=== PATIENT | female | born 1950 | race African-American/Black ===

== ENCOUNTER 2018-11-02 22:24 | Inpatient (IN) | payer MEDICARE, OTHER ==
--- NOTE | 2018-11-02 22:35 | ED Physician Chart ---
ED Chief Complaint/HPI - Patient Information Date Seen:: 11/02/18 Time Seen:: 22:30 Chief Complaint:: AGITATION History of Present Illness:: 68 YR OLD FEMALE FROM [place] IN [place] WITH AGITATION PSYCHOSIS PT WITH HTN COPD GERD ANEMIA ED Review of Systems - Review of Systems General/Constitutional: No fever, No chills, No weight loss, No weakness, No diaphoresis, No edema, No loss of appetite Skin: No skin lesions, No rash, No bruising Head: No headache, No light-headedness Eyes: No loss of vision, No pain, No diplopia ENT: No earache, No nasal drainage, No sore throat, No tinnitus Neck: No neck pain, No swelling, No thyromegaly, No stiffness, No mass noted Cardio Vascular: No chest pain, No palpitations, No PND, No orthopnea, No edema Pulmonary: No SOB, No cough, No sputum, No wheezing GI: No nausea, No vomiting, No diarrhea, No pain, No melena, No hematochezia, No constipation, No hematemesis G/U: No dysuria, No frequency, No hematuria Musculoskeletal: No bone or joint pain, No back pain, No muscle pain Endocrine: No polyuria, No polydipsia Psychiatric: Anxiety, Other (PSYCHOSIS SCHIZOPHRENIA) Hematopoietic: No bruising, No lymphadenopathy Allergic/Immuno: No urticaria, No angioedema Neurological: No syncope, No focal symptoms, No weakness, No paresthesia, No headache, No seizure, No dizziness, No confusion, No vertigo ED Past Medical History - Past Medical History Past Medical History: HTN, Asthma/COPD, Other (ANEMIA GERD SCHIZOPHRENIA ANXIETY DEPRESSION) ED Physical Exam - Physical Examination General/Constitutional: Awake, Alert Head: Atraumatic Eyes: Lids, conjuctiva normal, PERRL, EOMI Skin: Nl inspection, No rash, No skin lesions, No ecchymosis, Well hydrated, No lymphadenopathy ENMT: Lips, teeth, gums nl Neck: Nontender, Full ROM w/o pain, No JVD, No nuchal rigidity, No bruit, No mass, No stridor Respiratory: Nl effort/Exclusion, Clear to Auscultation, No Wheeze/Rhonchi/Rales Cardio Vascular: RRR, No murmur, gallop, rubs, NL S1 S2 GI: No tenderness/rebounding/guarding, Normal BS's, Nondistended : No CVA tenderness Extremities: No edema Misc: Normal back, No paraspinal tenderness ED Septic Shock - . Is Septic Shock (SBP<90, OR Lactate>4 mmol\L) present?: No ED Reassessment (Disposition) - Reassessment Reassessment Condition:: Unchanged - Diagnosis Diagnosis:: AGITATION PSYCHOSIS - Patient Disposition Discharge/Transfer:: Acute Care w/in this hosp
[2018-11-02] MEDS ORDERED: Haloperidol Lactate 5 mg/mL 1mL Vial ONE (22:39)
[2018-11-02] MEDS ORDERED: Haloperidol Lactate 5 mg/mL 1mL Vial IM STA (22:40)
[2018-11-02 22:50] LABS: % BASOPHILS 0.4 % (0.0-2.0); % EOSINOPHILS 4.7 % (0.0-5.0); % LYMPHOCYTES 36.3 % (20.0-50.0); % MONOCYTES 11.2 % (2.0-10.0); % NEUTROPHILS 47.4 % (40.0-80.0); EOSINOPHILE ABSOLUTE 0.4 Th/cmm (0.1-0.4); HEMATOCRIT 36.9 % (41.0-60); HEMOGLOBIN 11.8 gm/dL (12-16); LYMPHOCYTE ABSOLUTE 2.7 Th/cmm (1.5-3.0); MEAN CELL VOLUME 83.4 fl (81-100); MEAN CORPUSCULAR HEMOGLOBIN 26.8 pg (27.0-31.0); MEAN CORPUSCULAR HGB CONC 32.1 pg (28.0-36.0); MEAN PLATELET VOLUME 7.7 fl; MONOCYTE ABSOLUTE 0.8 Th/cmm (0.3-1.0); NEUTROPHILE ABSOLUTE 3.6 Th/cmm (1.8-8.0); PLATELET COUNT 369 Th/cmm (150-400); RED BLOOD COUNT 4.42 Mil/cmm (3.80-5.20); RED CELL DISTRIBUTION WIDTH 15.3 % (11.5-20.0); WHITE BLOOD COUNT 7.5 Th/cmm (4.8-10.8)
[2018-11-02 23:05] LABS: ALBUMIN 3.6 gm/dL (3.7-5.3); ALKALINE PHOSPHATASE 55 U/L (34-104); ANION GAP 11.2 (7.0-16.0); BILIRUBIN,TOTAL 0.2 mg/dL (0.3-1.0); BUN - UREA NITROGEN 20 mg/dL (7-25); CALCIUM SERUM 9.6 mg/dL (8.6-10.3); CARBON DIOXIDE 26.8 mEq/L (21.0-31.0); CHLORIDE 103 mEq/L (98-107); CREATININE - SERUM 0.5 mg/dL (0.6-1.2); GFR AFRICAN-AMERICAN > 60.0 ml/min (>90); GFR NON AFRICAN-AMERICAN > 60.0 ml/min; GLUCOSE 110 mg/dL (70-105); SGOT 13 U/L (13-39); SGPT/ALT 7 U/L (7-52); SODIUM SERUM 137 mEq/L (136-145); TOTAL PROTEIN,SERUM 7.4 gm/dL (6.0-8.3)
[2018-11-02 23:40] LABS: CHOLESTEROL 153 mg/dL (<200); HDL -HIGH DENSITY LIPOPROTEIN 59 mg/dL (23-92); TRIGLYCERIDES 56 mg/dL (<150)
[2018-11-03 02:02] VITALS: BP 103/79
[2018-11-03] MEDS ORDERED: APAP/Codeine 300 mg/30 mg Tab PO PRN (02:03)
[2018-11-03] MEDS ORDERED: Acetaminophen 500 MG TAB PO PRN (02:03)
--- NOTE | 2018-11-03 13:05 | Psychiatric Evaluation ---
DATE OF SERVICE: 11/03/2018 IDENTIFYING DATA: The patient is a 68-year-old -[place]ian woman, resident of [facility]. Information obtained by interviewing the patient as well as reviewing the admission papers and they are reliable. JUSTIFICATION OF HOSPITALIZATION: The patient is admitted here on a voluntary basis under the care of Dr. De La Fuente and the patient has been noted to be grossly psychotic, agitated and has not been able to contract for safety. The patient has been on Seroquel prior to the hospitalization, but the patient has not been able to calm down. The patient is reported to have multiple medical problems such as COPD, hypertension, GERD and glaucoma, arthritis, anemia and patient at this time has been getting easily irritable, angry and actively responding to internal stimuli. Sleep and appetite prior to the hospitalization are reported to be poor. PAST PSYCHIATRIC HISTORY: Please refer to the above. The patient is not giving any information. MEDICAL HISTORY: Physical examination is requested to be done by Dr. Rosen. SUBSTANCE ABUSE HISTORY: None. PHYSICAL OR SEXUAL ABUSE HISTORY: None. LEGAL PROBLEMS: None at this time. STRENGTH AND ASSETS: The patient is motivated. MENTAL STATUS EXAMINATION: The patient is a 68-year-old, looking her stated age, superficially cooperative. Eye contact is poor. Mood is noted to be irritable. Affect is constricted. Insight and judgment at this time are noted to be still impaired. Impulse control is noted to be poor. Coping skills are also noted to be very poor. The patient has been having difficult time to cope with the stress. The patient is getting easily irritable and angry and the patient has actively been responding to internal stimuli. Continues to be very paranoid. Attention span and concentration are noted to be poor. Short and long-term memory could not be tested because the patient is not cooperative. DIAGNOSTIC IMPRESSION: AXIS I: Schizophrenia, chronic paranoid type with acute exacerbation. AXIS II: None. AXIS III: As per Dr. Rosen. IMMEDIATE TREATMENT PLAN: The patient is going to be observed on the inpatient unit, provided with supportive psychotherapy. The patient is going to be encouraged to participate in the groups and verbalize the concerns. Once stabilized, the patient is going to be discharged to [facility] to be followed up on an outpatient basis. JOB# [id number]
--- NOTE | 2018-11-03 16:10 | History and Physical ---
History of Present Illness - HPI Chief Complaint: agitation HPI: This is a 68-year old female who is a resident of [facility] with a 1 day history of agitation. Vital Signs: Last Vital Signs Temp 0 F 11/03/18 06:34 Pulse 82 11/02/18 23:45 Resp 18 11/02/18 23:45 BP 103/79 11/03/18 02:02 Pulse Ox 96 11/02/18 23:45 Past Medical History Other History: HTN, Asthma, COPD, ANEMIA GERD SCHIZOPHRENIA ANXIETY DEPRESSION Family Medical History - Family Member Mother History Unknown: Yes Social History Smoke: No Alcohol: None Drugs: None Lives: [facility] - Medications Home Medications: Home Medication Medication Instructions Recorded Type Acetaminophen [Tylenol Extra 1 tab PO Q8HR PRN MDD NOT TO 11/02/18 History Strength] EXCEED 3 GRAMS APAP Acetaminophen with Codeine 1 tab PO Q8HR PRN MDD NOT TO 11/02/18 History [Acetaminophen-Cod #3 Tablet] EXCEED 3 GRAMS APAP Benztropine [Cogentin*] 1 tab PO BID 11/02/18 History Methocarbamol [Robaxin] 500 mg PO Q8HR PRN 11/02/18 History QUEtiapine Fumarate [SEROquel] 1 tab PO BID PRN 11/02/18 History - Allergies Allergies/Adverse Reactions: Allergies Allergy/AdvReac Type Severity Reaction Status Date / Time tetracycline Allergy Unknown Verified 11/02/18 22:33 klonopin Allergy Unknown Uncoded 11/02/18 22:35 Review of Systems - Review of Systems Constitutional: Report: No Significant Eyes: Report: No Significant Respiratory: Report: No Significant Cardiovascular: Report: No Significant Neurological: Report: No Significant Physical Exam - Physical Exam HEENT: Report: Ears Nose Throat within normal limits, Pharnyx within normal limits Neck: Report: Within normal limits Cardiovascular Systems: Report: +s1/s2 noted, Regular, Rate and Rhythm, no murmurs noted Respiratory: Report: Breath Sounds are within normal limits, Clear to Auscultation of lung latif Abdomen: Report: Non-tender to palpation Back: Report: Inspection of back is within normal limits. Extremities: Report: Non-tender to palpation. Skin: Report: Color of skin is within normal limits, Warm, Dry Neuro/Psych: Report: Depressed affect - Lab Results All Lab Results last 24 hours: Laboratory Results - last 24 hr 11/02/18 11/02/18 11/02/18 22:40 22:40 22:40 WBC 7.5 RBC 4.42 Hgb 11.8 L Hct 36.9 L MCV 83.4 MCH 26.8 L MCHC Differential 32.1 RDW 15.3 Plt Count 369 MPV 7.7 Neutrophils % 47.4 Lymphocytes % 36.3 Monocytes % 11.2 H Eosinophils % 4.7 Basophils % 0.4 Sodium 137 Potassium 4.0 Chloride 103 Carbon Dioxide 26.8 Anion Gap 11.2 BUN 20 Creatinine 0.5 L Est GFR ( Amer) > 60.0 Est GFR (Non-Af Amer) > 60.0 BUN/Creatinine Ratio 40.0 Glucose 110 H Calcium 9.6 Total Bilirubin 0.2 L AST 13 ALT 7 Alkaline Phosphatase 55 Total Protein 7.4 Albumin 3.6 L Globulin 3.8 Albumin/Globulin Ratio 1.0 Triglycerides 56 Cholesterol 153 LDL Cholesterol Direct 82 HDL Cholesterol 59 - Assessment Assessment: HTN ASTHMA COPD ANEMIA SCHIZOPHRENIA ANXIETY DEPRESSION - Plan Plan: FALL PRECAUTIONS SUPPLEMENTAL O2 NEEDED CONT. SNF MEDS CONTINUE CURRENT ORDERS
--- NOTE | 2018-11-04 15:53 | Internal Medicine Prog Note ---
Internal Medicine Subjective - Subjective Service Date: 11/04/18 Patient seen and examined:: with staff Patient is:: awake Per staff patient has:: tolerating meds Internal Medicine Objective - Results Result Diagrams: 11/02/18 22:40 11/02/18 22:40 Recent Labs: Laboratory Last Values WBC 7.5 Th/cmm (4.8-10.8) 11/02/18 22:40 RBC 4.42 Mil/cmm (3.80-5.20) 11/02/18 22:40 Hgb 11.8 gm/dL (12-16) L 11/02/18 22:40 Hct 36.9 % (41.0-60) L 11/02/18 22:40 MCV 83.4 fl (81-100) 11/02/18 22:40 MCH 26.8 pg (27.0-31.0) L 11/02/18 22:40 MCHC Differential 32.1 pg (28.0-36.0) 11/02/18 22:40 RDW 15.3 % (11.5-20.0) 11/02/18 22:40 Plt Count 369 Th/cmm (150-400) 11/02/18 22:40 MPV 7.7 fl 11/02/18 22:40 Neutrophils % 47.4 % (40.0-80.0) 11/02/18 22:40 Lymphocytes % 36.3 % (20.0-50.0) 11/02/18 22:40 Monocytes % 11.2 % (2.0-10.0) H 11/02/18 22:40 Eosinophils % 4.7 % (0.0-5.0) 11/02/18 22:40 Basophils % 0.4 % (0.0-2.0) 11/02/18 22:40 Sodium 137 mEq/L (136-145) 11/02/18 22:40 Potassium 4.0 mEq/L (3.5-5.1) 11/02/18 22:40 Chloride 103 mEq/L (98-107) 11/02/18 22:40 Carbon Dioxide 26.8 mEq/L (21.0-31.0) 11/02/18 22:40 Anion Gap 11.2 (7.0-16.0) 11/02/18 22:40 BUN 20 mg/dL (7-25) 11/02/18 22:40 Creatinine 0.5 mg/dL (0.6-1.2) L 11/02/18 22:40 Est GFR ( Amer) > 60.0 ml/min (>90) 11/02/18 22:40 Est GFR (Non-Af Amer) > 60.0 ml/min 11/02/18 22:40 BUN/Creatinine Ratio 40.0 11/02/18 22:40 Glucose 110 mg/dL (70-105) H 11/02/18 22:40 Calcium 9.6 mg/dL (8.6-10.3) 11/02/18 22:40 Total Bilirubin 0.2 mg/dL (0.3-1.0) L 11/02/18 22:40 AST 13 U/L (13-39) 11/02/18 22:40 ALT 7 U/L (7-52) 11/02/18 22:40 Alkaline Phosphatase 55 U/L (34-104) 11/02/18 22:40 Total Protein 7.4 gm/dL (6.0-8.3) 11/02/18 22:40 Albumin 3.6 gm/dL (3.7-5.3) L 11/02/18 22:40 Globulin 3.8 gm/dL 11/02/18 22:40 Albumin/Globulin Ratio 1.0 (1.0-1.8) 11/02/18 22:40 Triglycerides 56 mg/dL (<150) 11/02/18 22:40 Cholesterol 153 mg/dL (<200) 11/02/18 22:40 LDL Cholesterol Direct 82 mg/dL (75-193) 11/02/18 22:40 HDL Cholesterol 59 mg/dL (23-92) 11/02/18 22:40 - Physical Exam Vitals and I&O: Vital Signs Temp 0 F 11/03/18 06:34 Pulse 82 11/02/18 23:45 Resp 18 11/02/18 23:45 BP 103/79 11/03/18 02:02 Pulse Ox 96 11/02/18 23:45 Intake & Output 11/03/18 11/04/18 11/04/18 18:59 06:59 18:59 Intake Total 1200 120 Balance 1200 120 Intake: Oral 1200 120 Other: # Voids 4 3 # Bowel Movements 1 Active Medications: Current Medications Acetaminophen (Tylenol Extra Strength) 500 mg PO Q8HR PRN PRN Reason: PAIN 1-3 Stop: 01/02/19 02:02 Acetaminophen/Codeine Phosphate (Tylenol W/Codeine #3) 1 tab PO Q8HR PRN PRN Reason: PAIN 4-10 Stop: 01/02/19 02:02 Lorazepam (Ativan) 0.5 mg PO Q4HR PRN; Protocol PRN Reason: Anxiety Stop: 12/02/18 23:44 Methocarbamol (Robaxin) 500 mg PO Q8HR PRN PRN Reason: MUSCLE SPASM Stop: 01/02/19 02:02 Quetiapine Fumarate (Seroquel) 200 mg PO BID [facility]; Protocol Stop: 01/02/19 16:59 Last Admin: 11/04/18 08:11 Dose: Not Given Zolpidem Tartrate (Ambien) 5 mg PO HS PRN PRN Reason: Insomnia Stop: 01/01/19 23:44 General: weak, alert HEENT: NC/AT, PERRLA Neck: Supple Lungs: CTAB Cardiovascular: RRR, Normal S1, Normal S2, without murmur Abdomen: soft, non-tender, non-distended, positive bowel sound Neurological: alert Internal Medicine Assmt/Plan - Assessment Assessment: HTN ASTHMA COPD ANEMIA SCHIZOPHRENIA ANXIETY DEPRESSION - Plan Plan: FALL PRECAUTIONS SUPPLEMENTAL O2 NEEDED CONT. SNF MEDS CONTINUE CURRENT ORDERS
--- NOTE | 2018-11-04 20:46 | Progress Notes ---
DATE: 11/04/2018 SUBJECTIVE: Staff was spoken to. The patient is interviewed. Mood is noted to be irritable. Affect is constricted. The patient is actively responding to internal stimuli. The patient's coping skills are noted to be extremely poor. No side effects to the medications are noted. The patient is currently on 200 mg of the Seroquel, but the patient does not seem to be responding to it. PLAN: To give the patient one more chance one more day with these medications if patient is not responding, possibly the patient is going to be changed to Zyprexa tomorrow and the patient is going to be closely monitored. JOB# [id number]
--- NOTE | 2018-11-05 14:01 | Internal Medicine Prog Note ---
Internal Medicine Subjective - Subjective Service Date: 11/05/18 Patient is:: awake Per staff patient has:: tolerating meds Internal Medicine Objective - Results Result Diagrams: 11/02/18 22:40 11/02/18 22:40 Recent Labs: Laboratory Last Values WBC 7.5 Th/cmm (4.8-10.8) 11/02/18 22:40 RBC 4.42 Mil/cmm (3.80-5.20) 11/02/18 22:40 Hgb 11.8 gm/dL (12-16) L 11/02/18 22:40 Hct 36.9 % (41.0-60) L 11/02/18 22:40 MCV 83.4 fl (81-100) 11/02/18 22:40 MCH 26.8 pg (27.0-31.0) L 11/02/18 22:40 MCHC Differential 32.1 pg (28.0-36.0) 11/02/18 22:40 RDW 15.3 % (11.5-20.0) 11/02/18 22:40 Plt Count 369 Th/cmm (150-400) 11/02/18 22:40 MPV 7.7 fl 11/02/18 22:40 Neutrophils % 47.4 % (40.0-80.0) 11/02/18 22:40 Lymphocytes % 36.3 % (20.0-50.0) 11/02/18 22:40 Monocytes % 11.2 % (2.0-10.0) H 11/02/18 22:40 Eosinophils % 4.7 % (0.0-5.0) 11/02/18 22:40 Basophils % 0.4 % (0.0-2.0) 11/02/18 22:40 Sodium 137 mEq/L (136-145) 11/02/18 22:40 Potassium 4.0 mEq/L (3.5-5.1) 11/02/18 22:40 Chloride 103 mEq/L (98-107) 11/02/18 22:40 Carbon Dioxide 26.8 mEq/L (21.0-31.0) 11/02/18 22:40 Anion Gap 11.2 (7.0-16.0) 11/02/18 22:40 BUN 20 mg/dL (7-25) 11/02/18 22:40 Creatinine 0.5 mg/dL (0.6-1.2) L 11/02/18 22:40 Est GFR ( Amer) > 60.0 ml/min (>90) 11/02/18 22:40 Est GFR (Non-Af Amer) > 60.0 ml/min 11/02/18 22:40 BUN/Creatinine Ratio 40.0 11/02/18 22:40 Glucose 110 mg/dL (70-105) H 11/02/18 22:40 Calcium 9.6 mg/dL (8.6-10.3) 11/02/18 22:40 Total Bilirubin 0.2 mg/dL (0.3-1.0) L 11/02/18 22:40 AST 13 U/L (13-39) 11/02/18 22:40 ALT 7 U/L (7-52) 11/02/18 22:40 Alkaline Phosphatase 55 U/L (34-104) 11/02/18 22:40 Total Protein 7.4 gm/dL (6.0-8.3) 11/02/18 22:40 Albumin 3.6 gm/dL (3.7-5.3) L 11/02/18 22:40 Globulin 3.8 gm/dL 11/02/18 22:40 Albumin/Globulin Ratio 1.0 (1.0-1.8) 11/02/18 22:40 Triglycerides 56 mg/dL (<150) 11/02/18 22:40 Cholesterol 153 mg/dL (<200) 11/02/18 22:40 LDL Cholesterol Direct 82 mg/dL (75-193) 11/02/18 22:40 HDL Cholesterol 59 mg/dL (23-92) 11/02/18 22:40 - Physical Exam Vitals and I&O: Vital Signs Temp 0 F 11/05/18 06:31 Pulse 88 11/04/18 20:00 Resp 20 11/04/18 20:00 BP 112/57 11/04/18 20:00 Pulse Ox 94 11/04/18 20:00 Intake & Output 11/04/18 11/05/18 11/05/18 18:59 06:59 18:59 Weight (lbs) 160 lb Other: # Voids 3 # Bowel Movements 0 Weight Source Bedscale Active Medications: Current Medications Acetaminophen (Tylenol Extra Strength) 500 mg PO Q8HR PRN PRN Reason: PAIN 1-3 Stop: 01/02/19 02:02 Acetaminophen/Codeine Phosphate (Tylenol W/Codeine #3) 1 tab PO Q8HR PRN PRN Reason: PAIN 4-10 Stop: 01/02/19 02:02 Lorazepam (Ativan) 0.5 mg PO Q4HR PRN; Protocol PRN Reason: Anxiety Stop: 12/02/18 23:44 Methocarbamol (Robaxin) 500 mg PO Q8HR PRN PRN Reason: MUSCLE SPASM Stop: 01/02/19 02:02 Quetiapine Fumarate (Seroquel) 200 mg PO BID [facility]; Protocol Stop: 01/02/19 16:59 Last Admin: 11/05/18 08:41 Dose: 200 mg Zolpidem Tartrate (Ambien) 5 mg PO HS PRN PRN Reason: Insomnia Stop: 01/01/19 23:44 General: weak, alert HEENT: NC/AT, PERRLA Neck: Supple Lungs: CTAB Cardiovascular: RRR, Normal S1, Normal S2, without murmur Abdomen: soft, non-tender, non-distended, positive bowel sound Neurological: alert Internal Medicine Assmt/Plan - Assessment Assessment: HTN ASTHMA COPD ANEMIA SCHIZOPHRENIA ANXIETY DEPRESSION - Plan Plan: FALL PRECAUTIONS SUPPLEMENTAL O2 NEEDED CONT. SNF MEDS CONTINUE CURRENT ORDERS
--- NOTE | 2018-11-05 19:06 | Consultation ---
DATE OF CONSULTATION: 11/05/2018 REFERRING PHYSICIAN: Cem Castellon M.D. TYPE OF CONSULTATION: Psychology. HISTORY OF PRESENT ILLNESS: The patient is a 68-year-old -[place] female. The patient is a resident of [facility]. The following is by record review and by the patient's self-report. The patient is being admitted under the care of Dr. De La Fuente due to psychosis as well as agitated behavior. The patient presents as easily agitated and possibly responding to internal stimuli. The patient did not answer questions about suicidal ideation, plan or intention. PAST MEDICAL HISTORY: Please see history and physical by Dr. Rosen. PAST PSYCHIATRIC HISTORY: Records are unavailable. SUBSTANCE ABUSE HISTORY: The patient denies any history of alcohol, tobacco or illicit drug use. PSYCHOSOCIAL HISTORY: The patient did not answer questions about occupational or educational history or oriental orthodox affiliation. The patient denied any history of physical or sexual abuse or current legal problems. The patient states that she has family who are involved in her care, but was not specific. MENTAL STATUS EXAMINATION: The patient appears to be her stated age. The patient's attitude is superficially cooperative. Eye contact is poor. Speech is slow but pressured. Mood is irritable. Affect is constricted. Thought process shows to be confused. The patient denied any auditory or visual hallucinations; however, the patient appears to be responding to internal stimuli. There is some evidence of paranoid ideation. The patient denied any delusions that were command type, persecutory type or grandiose type. The patient's behavior has been difficult to redirect on the unit. Impulse control is inadequate. Concentration is poor. The patient did not participate in the memory assessment. Sensorium is alert and oriented to self only. The patient did not participate in the interpretation of proverbs. Insight is impaired. Judgment is compromised. DIAGNOSTIC IMPRESSION: AXIS I: Schizophrenia, chronic paranoid type with acute exacerbation. AXIS II: Deferred. AXIS III: Per Dr. Rosen. TREATMENT PLAN: The patient has been seen by Dr. Castellon for psychiatric evaluation and for the management of the patient's psychotropic medications. We will provide supportive psychotherapy to include reality orientation, differentiation and integration. We will provide motivational enhancement for the patient to become compliant and stay compliant with all aspects of her care and treatment. We will encourage the patient to be able to demonstrate emotional and self-regulation prior to her discharge. We will provide stress management to increase the patient's frustration tolerance and decrease her impulsivity. We will continue with supportive therapy that includes coping strategies for chronic severe mental illness. Thank you, Dr. Castellon for this consult and the opportunity to participate in this patient's care. [facility]# [id number] MTDD
--- NOTE | 2018-11-06 00:11 | Progress Notes ---
DATE: 11/05/2018 SUBJECTIVE: Staff was spoken to. The patient is interviewed. Mood is irritable. Affect is constricted. The patient's insight and judgment at this time are noted to be still impaired. Impulse control is very poor. The patient has not been able to contract for safety. The patient is actively responding to internal stimuli. No side effects to the medications are noted. ASSESSMENT: The patient is still psychotic. PLAN: Low dose of the haloperidol in view of the patient's psychosis and see if it is going to make any change with regards to the patient's psychosis. The patient is currently on Seroquel. It does not seem to be helping the patient at this time, hence I am adding the haloperidol ____ to the Seroquel. JOB# [id number]
--- NOTE | 2018-11-06 17:05 | Internal Medicine Prog Note ---
Internal Medicine Subjective - Subjective Service Date: 11/06/18 Patient is:: awake Per staff patient has:: tolerating meds Internal Medicine Objective - Results Result Diagrams: 11/02/18 22:40 11/02/18 22:40 Recent Labs: Laboratory Last Values WBC 7.5 Th/cmm (4.8-10.8) 11/02/18 22:40 RBC 4.42 Mil/cmm (3.80-5.20) 11/02/18 22:40 Hgb 11.8 gm/dL (12-16) L 11/02/18 22:40 Hct 36.9 % (41.0-60) L 11/02/18 22:40 MCV 83.4 fl (81-100) 11/02/18 22:40 MCH 26.8 pg (27.0-31.0) L 11/02/18 22:40 MCHC Differential 32.1 pg (28.0-36.0) 11/02/18 22:40 RDW 15.3 % (11.5-20.0) 11/02/18 22:40 Plt Count 369 Th/cmm (150-400) 11/02/18 22:40 MPV 7.7 fl 11/02/18 22:40 Neutrophils % 47.4 % (40.0-80.0) 11/02/18 22:40 Lymphocytes % 36.3 % (20.0-50.0) 11/02/18 22:40 Monocytes % 11.2 % (2.0-10.0) H 11/02/18 22:40 Eosinophils % 4.7 % (0.0-5.0) 11/02/18 22:40 Basophils % 0.4 % (0.0-2.0) 11/02/18 22:40 Sodium 137 mEq/L (136-145) 11/02/18 22:40 Potassium 4.0 mEq/L (3.5-5.1) 11/02/18 22:40 Chloride 103 mEq/L (98-107) 11/02/18 22:40 Carbon Dioxide 26.8 mEq/L (21.0-31.0) 11/02/18 22:40 Anion Gap 11.2 (7.0-16.0) 11/02/18 22:40 BUN 20 mg/dL (7-25) 11/02/18 22:40 Creatinine 0.5 mg/dL (0.6-1.2) L 11/02/18 22:40 Est GFR ( Amer) > 60.0 ml/min (>90) 11/02/18 22:40 Est GFR (Non-Af Amer) > 60.0 ml/min 11/02/18 22:40 BUN/Creatinine Ratio 40.0 11/02/18 22:40 Glucose 110 mg/dL (70-105) H 11/02/18 22:40 Calcium 9.6 mg/dL (8.6-10.3) 11/02/18 22:40 Total Bilirubin 0.2 mg/dL (0.3-1.0) L 11/02/18 22:40 AST 13 U/L (13-39) 11/02/18 22:40 ALT 7 U/L (7-52) 11/02/18 22:40 Alkaline Phosphatase 55 U/L (34-104) 11/02/18 22:40 Total Protein 7.4 gm/dL (6.0-8.3) 11/02/18 22:40 Albumin 3.6 gm/dL (3.7-5.3) L 11/02/18 22:40 Globulin 3.8 gm/dL 11/02/18 22:40 Albumin/Globulin Ratio 1.0 (1.0-1.8) 11/02/18 22:40 Triglycerides 56 mg/dL (<150) 11/02/18 22:40 Cholesterol 153 mg/dL (<200) 11/02/18 22:40 LDL Cholesterol Direct 82 mg/dL (75-193) 11/02/18 22:40 HDL Cholesterol 59 mg/dL (23-92) 11/02/18 22:40 - Physical Exam Vitals and I&O: Vital Signs Temp 97.0 F 11/06/18 06:42 Pulse 93 11/06/18 06:42 Resp 20 11/06/18 06:42 BP 139/99 11/06/18 06:42 Pulse Ox 91 11/06/18 06:42 Intake & Output 11/05/18 11/06/18 11/06/18 18:59 06:59 18:59 Intake Total 750 60 Balance 750 60 Intake: Oral 750 60 Other: # Voids 3 1 # Bowel Movements 0 0 Active Medications: Current Medications Acetaminophen (Tylenol Extra Strength) 500 mg PO Q8HR PRN PRN Reason: PAIN 1-3 Stop: 01/02/19 02:02 Acetaminophen/Codeine Phosphate (Tylenol W/Codeine #3) 1 tab PO Q8HR PRN PRN Reason: PAIN 4-10 Stop: 01/02/19 02:02 Haloperidol (Haldol) 1 mg PO BID [facility]; Protocol Stop: 01/05/19 08:59 Last Admin: 11/06/18 17:02 Dose: Not Given Lorazepam (Ativan) 0.5 mg PO Q4HR PRN; Protocol PRN Reason: Anxiety Stop: 12/02/18 23:44 Methocarbamol (Robaxin) 500 mg PO Q8HR PRN PRN Reason: MUSCLE SPASM Stop: 01/02/19 02:02 Quetiapine Fumarate (Seroquel) 200 mg PO BID [facility]; Protocol Stop: 01/02/19 16:59 Last Admin: 11/06/18 17:02 Dose: Not Given Zolpidem Tartrate (Ambien) 5 mg PO HS PRN PRN Reason: Insomnia Stop: 01/01/19 23:44 General: weak, alert HEENT: NC/AT, PERRLA Neck: Supple Lungs: CTAB Cardiovascular: RRR, Normal S1, Normal S2, without murmur Abdomen: soft, non-tender, non-distended, positive bowel sound Neurological: alert Internal Medicine Assmt/Plan - Assessment Assessment: HTN ASTHMA COPD ANEMIA SCHIZOPHRENIA ANXIETY DEPRESSION - Plan Plan: FALL PRECAUTIONS SUPPLEMENTAL O2 NEEDED CONT. SNF MEDS CONTINUE CURRENT ORDERS
--- NOTE | 2018-11-07 01:55 | Progress Notes ---
DATE: 11/06/2018 SUBJECTIVE: Staff was spoken to. The patient is interviewed. Mood is noted to be irritable. Affect is constricted. The patient has not been making much sense. The patient is going on talking nonsensically. Coping skills are noted to be very poor. The patient is currently on Seroquel 200 mg twice a day since the patient continues to be irritable and angry and paranoid. Haldol has been given 1 mg twice a day. The patient is going to be closely monitored with these medications and will be followed up with the supportive therapy with recommendation that once stabilized, the patient is going to be discharged to a lower level of care. JOB# [id number]
[2018-11-07] MEDS: Haloperidol Lactate 2 mg/mL Udc PO SCH ×2 (13:31→17:53)
--- NOTE | 2018-11-07 16:44 | Internal Medicine Prog Note ---
Internal Medicine Subjective - Subjective Service Date: 11/07/18 Patient is:: awake Per staff patient has:: tolerating meds Internal Medicine Objective - Results Result Diagrams: 11/02/18 22:40 11/02/18 22:40 Recent Labs: Laboratory Last Values WBC 7.5 Th/cmm (4.8-10.8) 11/02/18 22:40 RBC 4.42 Mil/cmm (3.80-5.20) 11/02/18 22:40 Hgb 11.8 gm/dL (12-16) L 11/02/18 22:40 Hct 36.9 % (41.0-60) L 11/02/18 22:40 MCV 83.4 fl (81-100) 11/02/18 22:40 MCH 26.8 pg (27.0-31.0) L 11/02/18 22:40 MCHC Differential 32.1 pg (28.0-36.0) 11/02/18 22:40 RDW 15.3 % (11.5-20.0) 11/02/18 22:40 Plt Count 369 Th/cmm (150-400) 11/02/18 22:40 MPV 7.7 fl 11/02/18 22:40 Neutrophils % 47.4 % (40.0-80.0) 11/02/18 22:40 Lymphocytes % 36.3 % (20.0-50.0) 11/02/18 22:40 Monocytes % 11.2 % (2.0-10.0) H 11/02/18 22:40 Eosinophils % 4.7 % (0.0-5.0) 11/02/18 22:40 Basophils % 0.4 % (0.0-2.0) 11/02/18 22:40 Sodium 137 mEq/L (136-145) 11/02/18 22:40 Potassium 4.0 mEq/L (3.5-5.1) 11/02/18 22:40 Chloride 103 mEq/L (98-107) 11/02/18 22:40 Carbon Dioxide 26.8 mEq/L (21.0-31.0) 11/02/18 22:40 Anion Gap 11.2 (7.0-16.0) 11/02/18 22:40 BUN 20 mg/dL (7-25) 11/02/18 22:40 Creatinine 0.5 mg/dL (0.6-1.2) L 11/02/18 22:40 Est GFR ( Amer) > 60.0 ml/min (>90) 11/02/18 22:40 Est GFR (Non-Af Amer) > 60.0 ml/min 11/02/18 22:40 BUN/Creatinine Ratio 40.0 11/02/18 22:40 Glucose 110 mg/dL (70-105) H 11/02/18 22:40 Calcium 9.6 mg/dL (8.6-10.3) 11/02/18 22:40 Total Bilirubin 0.2 mg/dL (0.3-1.0) L 11/02/18 22:40 AST 13 U/L (13-39) 11/02/18 22:40 ALT 7 U/L (7-52) 11/02/18 22:40 Alkaline Phosphatase 55 U/L (34-104) 11/02/18 22:40 Total Protein 7.4 gm/dL (6.0-8.3) 11/02/18 22:40 Albumin 3.6 gm/dL (3.7-5.3) L 11/02/18 22:40 Globulin 3.8 gm/dL 11/02/18 22:40 Albumin/Globulin Ratio 1.0 (1.0-1.8) 11/02/18 22:40 Triglycerides 56 mg/dL (<150) 11/02/18 22:40 Cholesterol 153 mg/dL (<200) 11/02/18 22:40 LDL Cholesterol Direct 82 mg/dL (75-193) 11/02/18 22:40 HDL Cholesterol 59 mg/dL (23-92) 11/02/18 22:40 - Physical Exam Vitals and I&O: Vital Signs Temp 97.6 F 11/07/18 14:00 Pulse 83 11/07/18 14:00 Resp 20 11/07/18 14:00 BP 122/77 11/07/18 14:00 Pulse Ox 96 11/07/18 14:00 Intake & Output 11/06/18 11/07/18 11/07/18 18:59 06:59 18:59 Intake Total 950 240 Balance 950 240 Weight (lbs) 160 lb Intake: Oral 950 240 Other: # Voids 4 3 # Bowel Movements 1 0 Weight Source Bedscale Active Medications: Current Medications Acetaminophen (Tylenol Extra Strength) 500 mg PO Q8HR PRN PRN Reason: PAIN 1-3 Stop: 01/02/19 02:02 Acetaminophen/Codeine Phosphate (Tylenol W/Codeine #3) 1 tab PO Q8HR PRN PRN Reason: PAIN 4-10 Stop: 01/02/19 02:02 Haloperidol Lactate (Haldol) 1 mg PO BID DIANNE; Protocol Stop: 01/05/19 10:14 Last Admin: 11/07/18 13:31 Dose: Not Given Lorazepam (Ativan) 0.5 mg PO Q4HR PRN; Protocol PRN Reason: Anxiety Stop: 12/02/18 23:44 Methocarbamol (Robaxin) 500 mg PO Q8HR PRN PRN Reason: MUSCLE SPASM Stop: 01/02/19 02:02 Quetiapine Fumarate (Seroquel) 200 mg PO BID DIANNE; Protocol Stop: 01/02/19 16:59 Last Admin: 11/07/18 13:31 Dose: Not Given Zolpidem Tartrate (Ambien) 5 mg PO HS PRN PRN Reason: Insomnia Stop: 01/01/19 23:44 General: weak, alert HEENT: NC/AT, PERRLA Neck: Supple Lungs: CTAB Cardiovascular: RRR, Normal S1, Normal S2, without murmur Abdomen: soft, non-tender, non-distended, positive bowel sound Neurological: alert Internal Medicine Assmt/Plan - Assessment Assessment: HTN ASTHMA COPD ANEMIA SCHIZOPHRENIA ANXIETY DEPRESSION - Plan Plan: FALL PRECAUTIONS SUPPLEMENTAL O2 NEEDED CONT. SNF MEDS CONTINUE CURRENT ORDERS Nutritional Asmnt/Malnutr-PDOC - Dietary Evaluation Malnutrition Findings (Please click <Entered> for more info): Nutritional Asmnt/Malnutrition Start: 11/07/18 13: 33 Text: Status: Active Freq: Protocol: Document 11/07/18 13:33 [email or web address] (Rec: 11/07/18 13:51 [email or web address]) Nutritional Asmnt/Malnutrition Patient General Information Nutritional Screening Moderate Risk Diagnosis increased agitation Pertinent Medical Hx/Surgical Hx HTN, COPD, GERD, anemia Subjective Information Pt is AOx1 per nurse note. Pt intake is 75-100% of all meals per EMR. Oswaldo score is 11. Nurse note only noted potential skin problem. Current Diet Order/ Nutrition Support No added salt Patient / S.O Can't verbalize diet edu Pertinent Medications Seroquel, ambien Pertinent Labs Glucose 110, Cr 0.5, Albumin 3 .6 Nutritional Hx/Data Height 5 ft 6 in Height (Calculated Centimeters) 167.6 Current Weight (lbs) 160 lb Weight (Calculated Kilograms) 72.6 Weight (Calculated Grams) 71385.8 [place] Body Weight 142 Body Mass Index (BMI) 25.8 Weight Status Overweight GI Symptoms GI Symptoms None Last BM 11/06 Difficult in: None Food Allergies No Skin Integrity/Comment: Oswaldo 11 Current %PO Good (75-100%) Estimated Nutritional Goals BEE in Kcals: Using Current wt Calories/Kcals/Kg 23-27 Kcals Calculated 8691-7074 Protein: Using Current wt Protein g/k.8-1 Protein Calculated 58-72 Fluid: ml 2172-1088 (1ml/kcal) Nutritional Problem No current Nutrition Prob Problem N/A Intervention/Recommendation Comments 1. Continue with no added salt diet as ordered 2. Monitor PO intake, wt, labs and skin integrity 3. F/U as moderate risk in 3-5 days, 11/10-11/12 Expected Outcomes/Goals Expected Outcomes/Goals Goal: PO intake to meet at least 75% of nutritional needs .
--- NOTE | 2018-11-08 02:37 | Progress Notes ---
DATE: 11/07/2018 SUBJECTIVE: Staff was spoken to. The patient is interviewed. Mood is noted to be irritable. Affect is constricted. Insight and judgment is noted to be still impaired. Impulse control is noted to be limited. Coping skills are noted to be limited. The patient has been having difficult time to cope with the stress. Continues to be very paranoid and is responding to the internal stimuli. The patient keeps on repeating the same and the patient needs to be redirected constantly. The patient's sleep is noted to be poor. Appetite is noted to be improving. The patient is currently on 1 mg b.i.d. of the haloperidol because she is not responding to the Seroquel. PLAN: To closely monitor the patient with this combination and follow the patient up. JOB# [id number]
--- NOTE | 2018-11-08 12:48 | Internal Medicine Prog Note ---
Internal Medicine Subjective - Subjective Patient seen and examined:: with staff, chart reviewed Patient is:: awake, verbal, interactive Per staff patient has:: no adverse event, no episodes of fall, tolerating meds Internal Medicine Objective - Results Result Diagrams: 11/02/18 22:40 11/02/18 22:40 Recent Labs: Laboratory Last Values WBC 7.5 Th/cmm (4.8-10.8) 11/02/18 22:40 RBC 4.42 Mil/cmm (3.80-5.20) 11/02/18 22:40 Hgb 11.8 gm/dL (12-16) L 11/02/18 22:40 Hct 36.9 % (41.0-60) L 11/02/18 22:40 MCV 83.4 fl (81-100) 11/02/18 22:40 MCH 26.8 pg (27.0-31.0) L 11/02/18 22:40 MCHC Differential 32.1 pg (28.0-36.0) 11/02/18 22:40 RDW 15.3 % (11.5-20.0) 11/02/18 22:40 Plt Count 369 Th/cmm (150-400) 11/02/18 22:40 MPV 7.7 fl 11/02/18 22:40 Neutrophils % 47.4 % (40.0-80.0) 11/02/18 22:40 Lymphocytes % 36.3 % (20.0-50.0) 11/02/18 22:40 Monocytes % 11.2 % (2.0-10.0) H 11/02/18 22:40 Eosinophils % 4.7 % (0.0-5.0) 11/02/18 22:40 Basophils % 0.4 % (0.0-2.0) 11/02/18 22:40 Sodium 137 mEq/L (136-145) 11/02/18 22:40 Potassium 4.0 mEq/L (3.5-5.1) 11/02/18 22:40 Chloride 103 mEq/L (98-107) 11/02/18 22:40 Carbon Dioxide 26.8 mEq/L (21.0-31.0) 11/02/18 22:40 Anion Gap 11.2 (7.0-16.0) 11/02/18 22:40 BUN 20 mg/dL (7-25) 11/02/18 22:40 Creatinine 0.5 mg/dL (0.6-1.2) L 11/02/18 22:40 Est GFR ( Amer) > 60.0 ml/min (>90) 11/02/18 22:40 Est GFR (Non-Af Amer) > 60.0 ml/min 11/02/18 22:40 BUN/Creatinine Ratio 40.0 11/02/18 22:40 Glucose 110 mg/dL (70-105) H 11/02/18 22:40 Calcium 9.6 mg/dL (8.6-10.3) 11/02/18 22:40 Total Bilirubin 0.2 mg/dL (0.3-1.0) L 11/02/18 22:40 AST 13 U/L (13-39) 11/02/18 22:40 ALT 7 U/L (7-52) 11/02/18 22:40 Alkaline Phosphatase 55 U/L (34-104) 11/02/18 22:40 Total Protein 7.4 gm/dL (6.0-8.3) 11/02/18 22:40 Albumin 3.6 gm/dL (3.7-5.3) L 11/02/18 22:40 Globulin 3.8 gm/dL 11/02/18 22:40 Albumin/Globulin Ratio 1.0 (1.0-1.8) 11/02/18 22:40 Triglycerides 56 mg/dL (<150) 11/02/18 22:40 Cholesterol 153 mg/dL (<200) 11/02/18 22:40 LDL Cholesterol Direct 82 mg/dL (75-193) 11/02/18 22:40 HDL Cholesterol 59 mg/dL (23-92) 11/02/18 22:40 - Physical Exam Vitals and I&O: Vital Signs Temp 97.6 F 11/08/18 05:35 Pulse 98 11/08/18 05:35 Resp 20 11/08/18 08:00 BP 134/84 11/08/18 05:35 Pulse Ox 100 11/08/18 05:35 Intake & Output 11/07/18 11/08/18 11/08/18 18:59 06:59 18:59 Intake Total 1000 240 Balance 1000 240 Weight (lbs) 72.575 kg Intake: Oral 1000 240 Other: # Voids 3 3 # Bowel Movements 0 0 Weight Source Bedscale Active Medications: Current Medications Acetaminophen (Tylenol Extra Strength) 500 mg PO Q8HR PRN PRN Reason: PAIN 1-3 Stop: 01/02/19 02:02 Acetaminophen/Codeine Phosphate (Tylenol W/Codeine #3) 1 tab PO Q8HR PRN PRN Reason: PAIN 4-10 Stop: 01/02/19 02:02 Haloperidol Lactate (Haldol) 1 mg PO BID DIANNE; Protocol Stop: 01/05/19 10:14 Last Admin: 11/07/18 17:53 Dose: 1 mg Lorazepam (Ativan) 0.5 mg PO Q4HR PRN; Protocol PRN Reason: Anxiety Stop: 12/02/18 23:44 Methocarbamol (Robaxin) 500 mg PO Q8HR PRN PRN Reason: MUSCLE SPASM Stop: 01/02/19 02:02 Quetiapine Fumarate (Seroquel) 200 mg PO BID DIANNE; Protocol Stop: 01/02/19 16:59 Last Admin: 11/07/18 17:52 Dose: 200 mg Zolpidem Tartrate (Ambien) 5 mg PO HS PRN PRN Reason: Insomnia Stop: 01/01/19 23:44 Last Admin: 11/07/18 21:22 Dose: 5 mg General: weak, demented HEENT: NC/AT, PERRLA Neck: Supple Lungs: CTAB Cardiovascular: RRR, Normal S1, Normal S2, without murmur Abdomen: soft, non-tender, non-distended, positive bowel sound Extremities: excoriation Neurological: no change, disorganized Internal Medicine Assmt/Plan - Assessment Assessment: - Assessment Assessment: HTN ASTHMA COPD ANEMIA SCHIZOPHRENIA ANXIETY DEPRESSION - Plan Plan: FALL PRECAUTIONS SUPPLEMENTAL O2 NEEDED CONT. SNF MEDS CONTINUE CURRENT ORDERS - Plan Plan: cpm Nutritional Asmnt/Malnutr-PDOC - Dietary Evaluation Malnutrition Findings (Please click <Entered> for more info): Nutritional Asmnt/Malnutrition Start: 11/07/18 13: 33 Text: Status: Active Freq: Protocol: Document 11/07/18 13:33 [email or web address] (Rec: 11/07/18 13:51 [email or web address]) Nutritional Asmnt/Malnutrition Patient General Information Nutritional Screening Moderate Risk Diagnosis increased agitation Pertinent Medical Hx/Surgical Hx HTN, COPD, GERD, anemia Subjective Information Pt is AOx1 per nurse note. Pt intake is 75-100% of all meals per EMR. Oswaldo score is 11. Nurse note only noted potential skin problem. Current Diet Order/ Nutrition Support No added salt Patient / S.O Can't verbalize diet edu Pertinent Medications Seroquel, ambien Pertinent Labs Glucose 110, Cr 0.5, Albumin 3 .6 Nutritional Hx/Data Height 1.68 m Height (Calculated Centimeters) 167.6 Current Weight (lbs) 72.575 kg Weight (Calculated Kilograms) 72.6 Weight (Calculated Grams) 49707.8 [place] Body Weight 142 Body Mass Index (BMI) 25.8 Weight Status Overweight GI Symptoms GI Symptoms None Last BM 11/06 Difficult in: None Food Allergies No Skin Integrity/Comment: Oswaldo 11 Current %PO Good (75-100%) Estimated Nutritional Goals BEE in Kcals: Using Current wt Calories/Kcals/Kg 23-27 Kcals Calculated 8793-6266 Protein: Using Current wt Protein g/k.8-1 Protein Calculated 58-72 Fluid: ml 4196-1241 (1ml/kcal) Nutritional Problem No current Nutrition Prob Problem N/A Intervention/Recommendation Comments 1. Continue with no added salt diet as ordered 2. Monitor PO intake, wt, labs and skin integrity 3. F/U as moderate risk in 3-5 days, 11/10-11/12 Expected Outcomes/Goals Expected Outcomes/Goals Goal: PO intake to meet at least 75% of nutritional needs .
[2018-11-08] MEDS ORDERED: Haloperidol Lactate 5 mg/mL 1mL Vial IM ONE (13:28)
[2018-11-08] MEDS ORDERED: Haloperidol Lactate 5 mg/mL 1mL Vial ONE (13:39)
[2018-11-08] MEDS: Haloperidol Lactate 2 mg/mL Udc PO SCH ×2 (13:51→17:25)
[2018-11-09] MEDS: Haloperidol Lactate 2 mg/mL Udc PO SCH ×2 (08:11→17:05)
--- NOTE | 2018-11-09 10:04 | Progress Notes ---
DATE: 11/08/2018 SUBJECTIVE: Staff was spoken to. The patient is interviewed. Mood is noted to be irritable. Affect is constricted. The patient is not making much sense. The patient is screaming and yelling. Insight and judgment at this time are noted to be very much impaired. Impulse control is noted to be poor. Coping skills are also noted to be very poor. The patient has been reluctant to take any medications and the patient is noted to be conserved and hence it is decided to start the patient with haloperidol 5 mg along with Benadryl 50 mg IM to deal with the psychotic symptoms. The patient is going to be closely monitored and followed up. JOB# [id number]
--- NOTE | 2018-11-09 12:56 | Internal Medicine Prog Note ---
Internal Medicine Subjective - Subjective Patient seen and examined:: with staff, chart reviewed Patient is:: awake, verbal, interactive Per staff patient has:: no adverse event, no episodes of fall, tolerating meds Internal Medicine Objective - Results Result Diagrams: 11/02/18 22:40 11/02/18 22:40 Recent Labs: Laboratory Last Values WBC 7.5 Th/cmm (4.8-10.8) 11/02/18 22:40 RBC 4.42 Mil/cmm (3.80-5.20) 11/02/18 22:40 Hgb 11.8 gm/dL (12-16) L 11/02/18 22:40 Hct 36.9 % (41.0-60) L 11/02/18 22:40 MCV 83.4 fl (81-100) 11/02/18 22:40 MCH 26.8 pg (27.0-31.0) L 11/02/18 22:40 MCHC Differential 32.1 pg (28.0-36.0) 11/02/18 22:40 RDW 15.3 % (11.5-20.0) 11/02/18 22:40 Plt Count 369 Th/cmm (150-400) 11/02/18 22:40 MPV 7.7 fl 11/02/18 22:40 Neutrophils % 47.4 % (40.0-80.0) 11/02/18 22:40 Lymphocytes % 36.3 % (20.0-50.0) 11/02/18 22:40 Monocytes % 11.2 % (2.0-10.0) H 11/02/18 22:40 Eosinophils % 4.7 % (0.0-5.0) 11/02/18 22:40 Basophils % 0.4 % (0.0-2.0) 11/02/18 22:40 Sodium 137 mEq/L (136-145) 11/02/18 22:40 Potassium 4.0 mEq/L (3.5-5.1) 11/02/18 22:40 Chloride 103 mEq/L (98-107) 11/02/18 22:40 Carbon Dioxide 26.8 mEq/L (21.0-31.0) 11/02/18 22:40 Anion Gap 11.2 (7.0-16.0) 11/02/18 22:40 BUN 20 mg/dL (7-25) 11/02/18 22:40 Creatinine 0.5 mg/dL (0.6-1.2) L 11/02/18 22:40 Est GFR ( Amer) > 60.0 ml/min (>90) 11/02/18 22:40 Est GFR (Non-Af Amer) > 60.0 ml/min 11/02/18 22:40 BUN/Creatinine Ratio 40.0 11/02/18 22:40 Glucose 110 mg/dL (70-105) H 11/02/18 22:40 Calcium 9.6 mg/dL (8.6-10.3) 11/02/18 22:40 Total Bilirubin 0.2 mg/dL (0.3-1.0) L 11/02/18 22:40 AST 13 U/L (13-39) 11/02/18 22:40 ALT 7 U/L (7-52) 11/02/18 22:40 Alkaline Phosphatase 55 U/L (34-104) 11/02/18 22:40 Total Protein 7.4 gm/dL (6.0-8.3) 11/02/18 22:40 Albumin 3.6 gm/dL (3.7-5.3) L 11/02/18 22:40 Globulin 3.8 gm/dL 11/02/18 22:40 Albumin/Globulin Ratio 1.0 (1.0-1.8) 11/02/18 22:40 Triglycerides 56 mg/dL (<150) 11/02/18 22:40 Cholesterol 153 mg/dL (<200) 11/02/18 22:40 LDL Cholesterol Direct 82 mg/dL (75-193) 11/02/18 22:40 HDL Cholesterol 59 mg/dL (23-92) 11/02/18 22:40 - Physical Exam Vitals and I&O: Vital Signs Temp 97.8 F 11/09/18 06:41 Pulse 69 11/09/18 06:41 Resp 18 11/09/18 06:41 BP 123/74 11/09/18 06:41 Pulse Ox 97 11/09/18 06:41 Intake & Output 11/08/18 11/09/18 11/09/18 18:59 06:59 18:59 Intake Total 800 120 Balance 800 120 Intake: Oral 800 120 Other: # Voids 3 3 # Bowel Movements 0 Active Medications: Current Medications Acetaminophen (Tylenol Extra Strength) 500 mg PO Q8HR PRN PRN Reason: PAIN 1-3 Stop: 01/02/19 02:02 Acetaminophen/Codeine Phosphate (Tylenol W/Codeine #3) 1 tab PO Q8HR PRN PRN Reason: PAIN 4-10 Stop: 01/02/19 02:02 Haloperidol Lactate (Haldol) 2 mg PO BID DIANNE; Protocol Stop: 01/08/19 16:59 Lorazepam (Ativan) 0.5 mg PO Q4HR PRN; Protocol PRN Reason: Anxiety Stop: 12/02/18 23:44 Methocarbamol (Robaxin) 500 mg PO Q8HR PRN PRN Reason: MUSCLE SPASM Stop: 01/02/19 02:02 Quetiapine Fumarate (Seroquel) 200 mg PO BID DIANNE; Protocol Stop: 01/02/19 16:59 Last Admin: 11/09/18 08:11 Dose: Not Given Zolpidem Tartrate (Ambien) 5 mg PO HS PRN PRN Reason: Insomnia Stop: 01/01/19 23:44 Last Admin: 11/07/18 21:22 Dose: 5 mg General: weak, demented HEENT: NC/AT, PERRLA Neck: Supple Lungs: CTAB Cardiovascular: RRR, Normal S1, Normal S2, without murmur Abdomen: soft, non-tender, non-distended, positive bowel sound Extremities: excoriation Neurological: no change, disorganized Internal Medicine Assmt/Plan - Assessment Assessment: - Assessment Assessment: HTN ASTHMA COPD ANEMIA SCHIZOPHRENIA ANXIETY DEPRESSION - Plan Plan: FALL PRECAUTIONS SUPPLEMENTAL O2 NEEDED CONT. SNF MEDS CONTINUE CURRENT ORDERS - Plan Plan: cpm meds renewed aleksey rn Nutritional Asmnt/Malnutr-PDOC - Dietary Evaluation Malnutrition Findings (Please click <Entered> for more info): Nutritional Asmnt/Malnutrition Start: 11/07/18 13: 33 Text: Status: Active Freq: Protocol: Document 11/07/18 13:33 [email or web address] (Rec: 11/07/18 13:51 [email or web address]) Nutritional Asmnt/Malnutrition Patient General Information Nutritional Screening Moderate Risk Diagnosis increased agitation Pertinent Medical Hx/Surgical Hx HTN, COPD, GERD, anemia Subjective Information Pt is AOx1 per nurse note. Pt intake is 75-100% of all meals per EMR. Oswaldo score is 11. Nurse note only noted potential skin problem. Current Diet Order/ Nutrition Support No added salt Patient / S.O Can't verbalize diet edu Pertinent Medications Seroquel, ambien Pertinent Labs Glucose 110, Cr 0.5, Albumin 3 .6 Nutritional Hx/Data Height 1.68 m Height (Calculated Centimeters) 167.6 Current Weight (lbs) 72.575 kg Weight (Calculated Kilograms) 72.6 Weight (Calculated Grams) 59460.8 [place] Body Weight 142 Body Mass Index (BMI) 25.8 Weight Status Overweight GI Symptoms GI Symptoms None Last BM 11/06 Difficult in: None Food Allergies No Skin Integrity/Comment: Oswaldo 11 Current %PO Good (75-100%) Estimated Nutritional Goals BEE in Kcals: Using Current wt Calories/Kcals/Kg 23-27 Kcals Calculated 4614-8136 Protein: Using Current wt Protein g/k.8-1 Protein Calculated 58-72 Fluid: ml 7257-4324 (1ml/kcal) Nutritional Problem No current Nutrition Prob Problem N/A Intervention/Recommendation Comments 1. Continue with no added salt diet as ordered 2. Monitor PO intake, wt, labs and skin integrity 3. F/U as moderate risk in 3-5 days, 11/10-11/12 Expected Outcomes/Goals Expected Outcomes/Goals Goal: PO intake to meet at least 75% of nutritional needs .
--- NOTE | 2018-11-10 00:15 | Progress Notes ---
DATE: 11/09/2018 PSYCHIATRIC PROGRESS NOTE SUBJECTIVE: Staff was spoken to. The patient is interviewed. Mood is noted to be irritable. Affect is constricted. The patient is still responding to the internal stimuli. The patient has been reluctant to comply with the medication. Insight and judgment are noted to be still impaired. Impulse control is noted to be poor. The patient has been placed on the haloperidol because the patient has been refusing to comply with the medication. The patient is currently on 1 mg b.i.d. The patient still has been having difficult time and I am increasing the dose to 2 mg b.i.d. of the Haldol and the patient is going to be closely monitored. ASSESSMENT: The patient is still grossly psychotic and impulsive. PLAN: To continue the patient with the supportive therapy and followup. JOB# [id number]
[2018-11-10] MEDS: Haloperidol Lactate 2 mg/mL Udc PO SCH ×2 (09:47→17:09)
--- NOTE | 2018-11-10 09:49 | Internal Medicine Prog Note ---
Internal Medicine Subjective - Subjective Patient seen and examined:: with staff, chart reviewed Patient is:: awake, verbal, interactive Per staff patient has:: no adverse event, no episodes of fall, tolerating meds Internal Medicine Objective - Results Result Diagrams: 11/02/18 22:40 11/02/18 22:40 Recent Labs: Laboratory Last Values WBC 7.5 Th/cmm (4.8-10.8) 11/02/18 22:40 RBC 4.42 Mil/cmm (3.80-5.20) 11/02/18 22:40 Hgb 11.8 gm/dL (12-16) L 11/02/18 22:40 Hct 36.9 % (41.0-60) L 11/02/18 22:40 MCV 83.4 fl (81-100) 11/02/18 22:40 MCH 26.8 pg (27.0-31.0) L 11/02/18 22:40 MCHC Differential 32.1 pg (28.0-36.0) 11/02/18 22:40 RDW 15.3 % (11.5-20.0) 11/02/18 22:40 Plt Count 369 Th/cmm (150-400) 11/02/18 22:40 MPV 7.7 fl 11/02/18 22:40 Neutrophils % 47.4 % (40.0-80.0) 11/02/18 22:40 Lymphocytes % 36.3 % (20.0-50.0) 11/02/18 22:40 Monocytes % 11.2 % (2.0-10.0) H 11/02/18 22:40 Eosinophils % 4.7 % (0.0-5.0) 11/02/18 22:40 Basophils % 0.4 % (0.0-2.0) 11/02/18 22:40 Sodium 137 mEq/L (136-145) 11/02/18 22:40 Potassium 4.0 mEq/L (3.5-5.1) 11/02/18 22:40 Chloride 103 mEq/L (98-107) 11/02/18 22:40 Carbon Dioxide 26.8 mEq/L (21.0-31.0) 11/02/18 22:40 Anion Gap 11.2 (7.0-16.0) 11/02/18 22:40 BUN 20 mg/dL (7-25) 11/02/18 22:40 Creatinine 0.5 mg/dL (0.6-1.2) L 11/02/18 22:40 Est GFR ( Amer) > 60.0 ml/min (>90) 11/02/18 22:40 Est GFR (Non-Af Amer) > 60.0 ml/min 11/02/18 22:40 BUN/Creatinine Ratio 40.0 11/02/18 22:40 Glucose 110 mg/dL (70-105) H 11/02/18 22:40 Calcium 9.6 mg/dL (8.6-10.3) 11/02/18 22:40 Total Bilirubin 0.2 mg/dL (0.3-1.0) L 11/02/18 22:40 AST 13 U/L (13-39) 11/02/18 22:40 ALT 7 U/L (7-52) 11/02/18 22:40 Alkaline Phosphatase 55 U/L (34-104) 11/02/18 22:40 Total Protein 7.4 gm/dL (6.0-8.3) 11/02/18 22:40 Albumin 3.6 gm/dL (3.7-5.3) L 11/02/18 22:40 Globulin 3.8 gm/dL 11/02/18 22:40 Albumin/Globulin Ratio 1.0 (1.0-1.8) 11/02/18 22:40 Triglycerides 56 mg/dL (<150) 11/02/18 22:40 Cholesterol 153 mg/dL (<200) 11/02/18 22:40 LDL Cholesterol Direct 82 mg/dL (75-193) 11/02/18 22:40 HDL Cholesterol 59 mg/dL (23-92) 11/02/18 22:40 - Physical Exam Vitals and I&O: Vital Signs Temp 98 F 11/09/18 20:19 Pulse 87 11/09/18 20:19 Resp 19 11/09/18 20:19 BP 156/69 11/09/18 20:19 Pulse Ox 96 11/09/18 20:19 Intake & Output 11/09/18 11/10/18 11/10/18 18:59 06:59 18:59 Intake Total 960 480 Output Total 2 Balance 960 478 Intake: Oral 960 480 Output: Urine/Stool Mix 2 Other: # Voids 3 1 # Bowel Movements 0 Active Medications: Current Medications Acetaminophen (Tylenol Extra Strength) 500 mg PO Q8HR PRN PRN Reason: PAIN 1-3 Stop: 01/02/19 02:02 Acetaminophen/Codeine Phosphate (Tylenol W/Codeine #3) 1 tab PO Q8HR PRN PRN Reason: PAIN 4-10 Stop: 01/02/19 02:02 Haloperidol Lactate (Haldol) 2 mg PO BID DIANNE; Protocol Stop: 01/08/19 16:59 Last Admin: 11/10/18 09:47 Dose: 2 mg Lorazepam (Ativan) 0.5 mg PO Q4HR PRN; Protocol PRN Reason: Anxiety Stop: 12/02/18 23:44 Methocarbamol (Robaxin) 500 mg PO Q8HR PRN PRN Reason: MUSCLE SPASM Stop: 01/02/19 02:02 Quetiapine Fumarate (Seroquel) 200 mg PO BID DIANNE; Protocol Stop: 01/02/19 16:59 Last Admin: 11/10/18 09:47 Dose: Not Given Zolpidem Tartrate (Ambien) 5 mg PO HS PRN PRN Reason: Insomnia Stop: 01/01/19 23:44 Last Admin: 11/07/18 21:22 Dose: 5 mg General: weak, demented HEENT: NC/AT, PERRLA Neck: Supple Lungs: CTAB Cardiovascular: RRR, Normal S1, Normal S2, without murmur Abdomen: soft, non-tender, non-distended, positive bowel sound Extremities: excoriation Neurological: no change, disorganized Internal Medicine Assmt/Plan - Assessment Assessment: - Assessment Assessment: HTN ASTHMA COPD ANEMIA SCHIZOPHRENIA ANXIETY DEPRESSION - Plan Plan: FALL PRECAUTIONS SUPPLEMENTAL O2 NEEDED CONT. SNF MEDS CONTINUE CURRENT ORDERS - Plan Plan: cpm meds renewed aleksey rn Nutritional Asmnt/Malnutr-PDOC - Dietary Evaluation Malnutrition Findings (Please click <Entered> for more info): Nutritional Asmnt/Malnutrition Start: 11/07/18 13: 33 Text: Status: Active Freq: Protocol: Document 11/07/18 13:33 [email or web address] (Rec: 11/07/18 13:51 [email or web address]) Nutritional Asmnt/Malnutrition Patient General Information Nutritional Screening Moderate Risk Diagnosis increased agitation Pertinent Medical Hx/Surgical Hx HTN, COPD, GERD, anemia Subjective Information Pt is AOx1 per nurse note. Pt intake is 75-100% of all meals per EMR. Oswaldo score is 11. Nurse note only noted potential skin problem. Current Diet Order/ Nutrition Support No added salt Patient / S.O Can't verbalize diet edu Pertinent Medications Seroquel, ambien Pertinent Labs Glucose 110, Cr 0.5, Albumin 3 .6 Nutritional Hx/Data Height 1.68 m Height (Calculated Centimeters) 167.6 Current Weight (lbs) 72.575 kg Weight (Calculated Kilograms) 72.6 Weight (Calculated Grams) 66592.8 [place] Body Weight 142 Body Mass Index (BMI) 25.8 Weight Status Overweight GI Symptoms GI Symptoms None Last BM 11/06 Difficult in: None Food Allergies No Skin Integrity/Comment: Oswaldo 11 Current %PO Good (75-100%) Estimated Nutritional Goals BEE in Kcals: Using Current wt Calories/Kcals/Kg 23-27 Kcals Calculated 5132-1543 Protein: Using Current wt Protein g/k.8-1 Protein Calculated 58-72 Fluid: ml 1443-2249 (1ml/kcal) Nutritional Problem No current Nutrition Prob Problem N/A Intervention/Recommendation Comments 1. Continue with no added salt diet as ordered 2. Monitor PO intake, wt, labs and skin integrity 3. F/U as moderate risk in 3-5 days, 11/10-11/12 Expected Outcomes/Goals Expected Outcomes/Goals Goal: PO intake to meet at least 75% of nutritional needs .
--- NOTE | 2018-11-10 22:59 | Progress Notes ---
DATE: 11/10/2018 SUBJECTIVE: Staff was spoken to. The patient is interviewed. Mood is noted to be irritable. Affect is constricted. Insight and judgment are still impaired. The patient is screaming and yelling. Coping skills are noted to be extremely poor. Continues to be very paranoid. The patient has no insight into her illness. ASSESSMENT: The patient is still impulsive. PLAN: To continue the patient with the supportive therapy. Continue the Haloperidol and the patient is going to be responding well to that one, possibly the patient is going to be given the Haldol Decanoate. JOB# [id number]
[2018-11-11] MEDS: Haloperidol Lactate 2 mg/mL Udc PO SCH ×2 (09:04→17:03)
--- NOTE | 2018-11-11 14:20 | Internal Medicine Prog Note ---
Internal Medicine Subjective - Subjective Patient seen and examined:: with staff, chart reviewed Patient is:: awake, verbal, interactive Per staff patient has:: no adverse event, no episodes of fall, tolerating meds Internal Medicine Objective - Results Result Diagrams: 11/02/18 22:40 11/02/18 22:40 Recent Labs: Laboratory Last Values WBC 7.5 Th/cmm (4.8-10.8) 11/02/18 22:40 RBC 4.42 Mil/cmm (3.80-5.20) 11/02/18 22:40 Hgb 11.8 gm/dL (12-16) L 11/02/18 22:40 Hct 36.9 % (41.0-60) L 11/02/18 22:40 MCV 83.4 fl (81-100) 11/02/18 22:40 MCH 26.8 pg (27.0-31.0) L 11/02/18 22:40 MCHC Differential 32.1 pg (28.0-36.0) 11/02/18 22:40 RDW 15.3 % (11.5-20.0) 11/02/18 22:40 Plt Count 369 Th/cmm (150-400) 11/02/18 22:40 MPV 7.7 fl 11/02/18 22:40 Neutrophils % 47.4 % (40.0-80.0) 11/02/18 22:40 Lymphocytes % 36.3 % (20.0-50.0) 11/02/18 22:40 Monocytes % 11.2 % (2.0-10.0) H 11/02/18 22:40 Eosinophils % 4.7 % (0.0-5.0) 11/02/18 22:40 Basophils % 0.4 % (0.0-2.0) 11/02/18 22:40 Sodium 137 mEq/L (136-145) 11/02/18 22:40 Potassium 4.0 mEq/L (3.5-5.1) 11/02/18 22:40 Chloride 103 mEq/L (98-107) 11/02/18 22:40 Carbon Dioxide 26.8 mEq/L (21.0-31.0) 11/02/18 22:40 Anion Gap 11.2 (7.0-16.0) 11/02/18 22:40 BUN 20 mg/dL (7-25) 11/02/18 22:40 Creatinine 0.5 mg/dL (0.6-1.2) L 11/02/18 22:40 Est GFR ( Amer) > 60.0 ml/min (>90) 11/02/18 22:40 Est GFR (Non-Af Amer) > 60.0 ml/min 11/02/18 22:40 BUN/Creatinine Ratio 40.0 11/02/18 22:40 Glucose 110 mg/dL (70-105) H 11/02/18 22:40 Calcium 9.6 mg/dL (8.6-10.3) 11/02/18 22:40 Total Bilirubin 0.2 mg/dL (0.3-1.0) L 11/02/18 22:40 AST 13 U/L (13-39) 11/02/18 22:40 ALT 7 U/L (7-52) 11/02/18 22:40 Alkaline Phosphatase 55 U/L (34-104) 11/02/18 22:40 Total Protein 7.4 gm/dL (6.0-8.3) 11/02/18 22:40 Albumin 3.6 gm/dL (3.7-5.3) L 11/02/18 22:40 Globulin 3.8 gm/dL 11/02/18 22:40 Albumin/Globulin Ratio 1.0 (1.0-1.8) 11/02/18 22:40 Triglycerides 56 mg/dL (<150) 11/02/18 22:40 Cholesterol 153 mg/dL (<200) 11/02/18 22:40 LDL Cholesterol Direct 82 mg/dL (75-193) 11/02/18 22:40 HDL Cholesterol 59 mg/dL (23-92) 11/02/18 22:40 - Physical Exam Vitals and I&O: Vital Signs Temp 98 F 11/09/18 20:19 Pulse 87 11/09/18 20:19 Resp 19 11/09/18 20:19 BP 156/69 11/09/18 20:19 Pulse Ox 96 11/09/18 20:19 Intake & Output 11/10/18 11/11/18 11/11/18 18:59 06:59 18:59 Intake Total 700 240 Output Total 1 Balance 700 239 Intake: Oral 700 240 Output: Urine/Stool Mix 1 Other: # Voids 3 1 # Bowel Movements 0 Active Medications: Current Medications Acetaminophen (Tylenol Extra Strength) 500 mg PO Q8HR PRN PRN Reason: PAIN 1-3 Stop: 01/02/19 02:02 Acetaminophen/Codeine Phosphate (Tylenol W/Codeine #3) 1 tab PO Q8HR PRN PRN Reason: PAIN 4-10 Stop: 01/02/19 02:02 Haloperidol Lactate (Haldol) 2 mg PO BID DIANNE; Protocol Stop: 01/08/19 16:59 Last Admin: 11/11/18 09:04 Dose: 2 mg Lorazepam (Ativan) 0.5 mg PO Q4HR PRN; Protocol PRN Reason: Anxiety Stop: 12/02/18 23:44 Methocarbamol (Robaxin) 500 mg PO Q8HR PRN PRN Reason: MUSCLE SPASM Stop: 01/02/19 02:02 Quetiapine Fumarate (Seroquel) 200 mg PO BID DIANNE; Protocol Stop: 01/02/19 16:59 Last Admin: 11/11/18 09:04 Dose: Not Given Zolpidem Tartrate (Ambien) 5 mg PO HS PRN PRN Reason: Insomnia Stop: 01/01/19 23:44 Last Admin: 11/07/18 21:22 Dose: 5 mg General: weak, demented HEENT: NC/AT, PERRLA Neck: Supple Lungs: CTAB Cardiovascular: RRR, Normal S1, Normal S2, without murmur Abdomen: soft, non-tender, non-distended, positive bowel sound Extremities: excoriation Neurological: no change, disorganized Internal Medicine Assmt/Plan - Assessment Assessment: - Assessment Assessment: HTN ASTHMA COPD ANEMIA SCHIZOPHRENIA ANXIETY DEPRESSION - Plan Plan: FALL PRECAUTIONS SUPPLEMENTAL O2 NEEDED CONT. SNF MEDS CONTINUE CURRENT ORDERS - Plan Plan: cpm meds renewed aleksey rn Nutritional Asmnt/Malnutr-PDOC - Dietary Evaluation Malnutrition Findings (Please click <Entered> for more info): Nutritional Asmnt/Malnutrition Start: 11/07/18 13: 33 Text: Status: Active Freq: Protocol: Document 11/07/18 13:33 [email or web address] (Rec: 11/07/18 13:51 [email or web address]) Nutritional Asmnt/Malnutrition Patient General Information Nutritional Screening Moderate Risk Diagnosis increased agitation Pertinent Medical Hx/Surgical Hx HTN, COPD, GERD, anemia Subjective Information Pt is AOx1 per nurse note. Pt intake is 75-100% of all meals per EMR. Oswaldo score is 11. Nurse note only noted potential skin problem. Current Diet Order/ Nutrition Support No added salt Patient / S.O Can't verbalize diet edu Pertinent Medications Seroquel, ambien Pertinent Labs Glucose 110, Cr 0.5, Albumin 3 .6 Nutritional Hx/Data Height 1.68 m Height (Calculated Centimeters) 167.6 Current Weight (lbs) 72.575 kg Weight (Calculated Kilograms) 72.6 Weight (Calculated Grams) 99343.8 [place] Body Weight 142 Body Mass Index (BMI) 25.8 Weight Status Overweight GI Symptoms GI Symptoms None Last BM 11/06 Difficult in: None Food Allergies No Skin Integrity/Comment: Oswaldo 11 Current %PO Good (75-100%) Estimated Nutritional Goals BEE in Kcals: Using Current wt Calories/Kcals/Kg 23-27 Kcals Calculated 5712-6803 Protein: Using Current wt Protein g/k.8-1 Protein Calculated 58-72 Fluid: ml 8882-9552 (1ml/kcal) Nutritional Problem No current Nutrition Prob Problem N/A Intervention/Recommendation Comments 1. Continue with no added salt diet as ordered 2. Monitor PO intake, wt, labs and skin integrity 3. F/U as moderate risk in 3-5 days, 11/10-11/12 Expected Outcomes/Goals Expected Outcomes/Goals Goal: PO intake to meet at least 75% of nutritional needs .
--- NOTE | 2018-11-12 00:22 | Progress Notes ---
DATE: SUBJECTIVE: The patient was seen and evaluated. The patient's chart reviewed. This is Dr. Savage covering for Dr. Castellon. IDENTIFYING DATA: A 68-year-old female, who was initially brought in here from [facility], observed to be grossly psychotic and agitated, unable to contract for safety. 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 CURRENT MEDICATIONS: Haloperidol 2 mg b.i.d., quetiapine 200 mg p.o. b.i.d. Today on [id number] evaluation, the patient noted to have some thought blocking, withdrawn, and guarded. In reporting that she does not know what her name is on approach. MENTAL STATUS EXAMINATION: Still thought blocking and impulsive. ASSESSMENT AND PLAN: The patient with a history of chronic schizophrenia with acute exacerbation includes Seroquel currently being augmented with haloperidol with no complications of medication. We will continue monitoring and evaluating as she continues to show some mild improvement with the recent augmentation. JOB# [id number]
[2018-11-12] MEDS: Haloperidol Lactate 2 mg/mL Udc PO SCH ×3 (09:30→17:18)
--- NOTE | 2018-11-12 14:48 | Internal Medicine Prog Note ---
Internal Medicine Subjective - Subjective Patient seen and examined:: with staff, chart reviewed Patient is:: awake, verbal, interactive Per staff patient has:: no adverse event, no episodes of fall, tolerating meds Internal Medicine Objective - Results Result Diagrams: 11/02/18 22:40 11/02/18 22:40 Recent Labs: Laboratory Last Values WBC 7.5 Th/cmm (4.8-10.8) 11/02/18 22:40 RBC 4.42 Mil/cmm (3.80-5.20) 11/02/18 22:40 Hgb 11.8 gm/dL (12-16) L 11/02/18 22:40 Hct 36.9 % (41.0-60) L 11/02/18 22:40 MCV 83.4 fl (81-100) 11/02/18 22:40 MCH 26.8 pg (27.0-31.0) L 11/02/18 22:40 MCHC Differential 32.1 pg (28.0-36.0) 11/02/18 22:40 RDW 15.3 % (11.5-20.0) 11/02/18 22:40 Plt Count 369 Th/cmm (150-400) 11/02/18 22:40 MPV 7.7 fl 11/02/18 22:40 Neutrophils % 47.4 % (40.0-80.0) 11/02/18 22:40 Lymphocytes % 36.3 % (20.0-50.0) 11/02/18 22:40 Monocytes % 11.2 % (2.0-10.0) H 11/02/18 22:40 Eosinophils % 4.7 % (0.0-5.0) 11/02/18 22:40 Basophils % 0.4 % (0.0-2.0) 11/02/18 22:40 Sodium 137 mEq/L (136-145) 11/02/18 22:40 Potassium 4.0 mEq/L (3.5-5.1) 11/02/18 22:40 Chloride 103 mEq/L (98-107) 11/02/18 22:40 Carbon Dioxide 26.8 mEq/L (21.0-31.0) 11/02/18 22:40 Anion Gap 11.2 (7.0-16.0) 11/02/18 22:40 BUN 20 mg/dL (7-25) 11/02/18 22:40 Creatinine 0.5 mg/dL (0.6-1.2) L 11/02/18 22:40 Est GFR ( Amer) > 60.0 ml/min (>90) 11/02/18 22:40 Est GFR (Non-Af Amer) > 60.0 ml/min 11/02/18 22:40 BUN/Creatinine Ratio 40.0 11/02/18 22:40 Glucose 110 mg/dL (70-105) H 11/02/18 22:40 Calcium 9.6 mg/dL (8.6-10.3) 11/02/18 22:40 Total Bilirubin 0.2 mg/dL (0.3-1.0) L 11/02/18 22:40 AST 13 U/L (13-39) 11/02/18 22:40 ALT 7 U/L (7-52) 11/02/18 22:40 Alkaline Phosphatase 55 U/L (34-104) 11/02/18 22:40 Total Protein 7.4 gm/dL (6.0-8.3) 11/02/18 22:40 Albumin 3.6 gm/dL (3.7-5.3) L 11/02/18 22:40 Globulin 3.8 gm/dL 11/02/18 22:40 Albumin/Globulin Ratio 1.0 (1.0-1.8) 11/02/18 22:40 Triglycerides 56 mg/dL (<150) 11/02/18 22:40 Cholesterol 153 mg/dL (<200) 11/02/18 22:40 LDL Cholesterol Direct 82 mg/dL (75-193) 11/02/18 22:40 HDL Cholesterol 59 mg/dL (23-92) 11/02/18 22:40 - Physical Exam Vitals and I&O: Vital Signs Temp 0 F 11/12/18 06:34 Pulse 112 11/11/18 20:25 Resp 20 11/11/18 20:25 BP 93/62 11/11/18 20:25 Pulse Ox 94 11/11/18 20:25 Intake & Output 11/11/18 11/12/18 11/12/18 18:59 06:59 18:59 Intake Total 850 240 Balance 850 240 Weight (lbs) 72.575 kg Intake: Oral 850 240 Other: # Voids 4 3 # Bowel Movements 0 0 Weight Source Bedscale Active Medications: Current Medications Acetaminophen (Tylenol Extra Strength) 500 mg PO Q8HR PRN PRN Reason: PAIN 1-3 Stop: 01/02/19 02:02 Acetaminophen/Codeine Phosphate (Tylenol W/Codeine #3) 1 tab PO Q8HR PRN PRN Reason: PAIN 4-10 Stop: 01/02/19 02:02 Haloperidol Lactate (Haldol) 2 mg PO BID DIANNE; Protocol Stop: 01/08/19 16:59 Last Admin: 11/12/18 11:16 Dose: Not Given Lorazepam (Ativan) 0.5 mg PO Q4HR PRN; Protocol PRN Reason: Anxiety Stop: 12/02/18 23:44 Methocarbamol (Robaxin) 500 mg PO Q8HR PRN PRN Reason: MUSCLE SPASM Stop: 01/02/19 02:02 Quetiapine Fumarate (Seroquel) 200 mg PO BID DIANNE; Protocol Stop: 01/02/19 16:59 Last Admin: 11/12/18 11:16 Dose: Not Given Zolpidem Tartrate (Ambien) 5 mg PO HS PRN PRN Reason: Insomnia Stop: 01/01/19 23:44 Last Admin: 11/07/18 21:22 Dose: 5 mg General: weak, demented HEENT: NC/AT, PERRLA Neck: Supple Lungs: CTAB Cardiovascular: RRR, Normal S1, Normal S2, without murmur Abdomen: soft, non-tender, non-distended, positive bowel sound Extremities: excoriation Neurological: no change, disorganized Internal Medicine Assmt/Plan - Assessment Assessment: - Assessment Assessment: HTN ASTHMA COPD ANEMIA SCHIZOPHRENIA ANXIETY DEPRESSION - Plan Plan: FALL PRECAUTIONS SUPPLEMENTAL O2 NEEDED CONT. SNF MEDS CONTINUE CURRENT ORDERS - Plan Plan: cpm meds renewed aleksey rn Nutritional Asmnt/Malnutr-PDOC - Dietary Evaluation Malnutrition Findings (Please click <Entered> for more info): Nutritional Asmnt/Malnutrition Start: 11/07/18 13: 33 Text: Status: Active Freq: Protocol: Document 11/07/18 13:33 [email or web address] (Rec: 11/07/18 13:51 [email or web address]) Nutritional Asmnt/Malnutrition Patient General Information Nutritional Screening Moderate Risk Diagnosis increased agitation Pertinent Medical Hx/Surgical Hx HTN, COPD, GERD, anemia Subjective Information Pt is AOx1 per nurse note. Pt intake is 75-100% of all meals per EMR. Oswaldo score is 11. Nurse note only noted potential skin problem. Current Diet Order/ Nutrition Support No added salt Patient / S.O Can't verbalize diet edu Pertinent Medications Seroquel, ambien Pertinent Labs Glucose 110, Cr 0.5, Albumin 3 .6 Nutritional Hx/Data Height 1.68 m Height (Calculated Centimeters) 167.6 Current Weight (lbs) 72.575 kg Weight (Calculated Kilograms) 72.6 Weight (Calculated Grams) 88906.8 [place] Body Weight 142 Body Mass Index (BMI) 25.8 Weight Status Overweight GI Symptoms GI Symptoms None Last BM 11/06 Difficult in: None Food Allergies No Skin Integrity/Comment: Oswaldo 11 Current %PO Good (75-100%) Estimated Nutritional Goals BEE in Kcals: Using Current wt Calories/Kcals/Kg 23-27 Kcals Calculated 7990-5687 Protein: Using Current wt Protein g/k.8-1 Protein Calculated 58-72 Fluid: ml 2828-1127 (1ml/kcal) Nutritional Problem No current Nutrition Prob Problem N/A Intervention/Recommendation Comments 1. Continue with no added salt diet as ordered 2. Monitor PO intake, wt, labs and skin integrity 3. F/U as moderate risk in 3-5 days, 11/10-11/12 Expected Outcomes/Goals Expected Outcomes/Goals Goal: PO intake to meet at least 75% of nutritional needs .
[2018-11-13] MEDS: Haloperidol Lactate 2 mg/mL Udc PO SCH ×2 (09:14→16:46)
--- NOTE | 2018-11-13 14:12 | Internal Medicine Prog Note ---
Internal Medicine Subjective - Subjective Patient seen and examined:: with staff, chart reviewed Patient is:: awake, verbal, interactive Per staff patient has:: no adverse event, no episodes of fall, tolerating meds Internal Medicine Objective - Results Result Diagrams: 11/02/18 22:40 11/02/18 22:40 Recent Labs: Laboratory Last Values WBC 7.5 Th/cmm (4.8-10.8) 11/02/18 22:40 RBC 4.42 Mil/cmm (3.80-5.20) 11/02/18 22:40 Hgb 11.8 gm/dL (12-16) L 11/02/18 22:40 Hct 36.9 % (41.0-60) L 11/02/18 22:40 MCV 83.4 fl (81-100) 11/02/18 22:40 MCH 26.8 pg (27.0-31.0) L 11/02/18 22:40 MCHC Differential 32.1 pg (28.0-36.0) 11/02/18 22:40 RDW 15.3 % (11.5-20.0) 11/02/18 22:40 Plt Count 369 Th/cmm (150-400) 11/02/18 22:40 MPV 7.7 fl 11/02/18 22:40 Neutrophils % 47.4 % (40.0-80.0) 11/02/18 22:40 Lymphocytes % 36.3 % (20.0-50.0) 11/02/18 22:40 Monocytes % 11.2 % (2.0-10.0) H 11/02/18 22:40 Eosinophils % 4.7 % (0.0-5.0) 11/02/18 22:40 Basophils % 0.4 % (0.0-2.0) 11/02/18 22:40 Sodium 137 mEq/L (136-145) 11/02/18 22:40 Potassium 4.0 mEq/L (3.5-5.1) 11/02/18 22:40 Chloride 103 mEq/L (98-107) 11/02/18 22:40 Carbon Dioxide 26.8 mEq/L (21.0-31.0) 11/02/18 22:40 Anion Gap 11.2 (7.0-16.0) 11/02/18 22:40 BUN 20 mg/dL (7-25) 11/02/18 22:40 Creatinine 0.5 mg/dL (0.6-1.2) L 11/02/18 22:40 Est GFR ( Amer) > 60.0 ml/min (>90) 11/02/18 22:40 Est GFR (Non-Af Amer) > 60.0 ml/min 11/02/18 22:40 BUN/Creatinine Ratio 40.0 11/02/18 22:40 Glucose 110 mg/dL (70-105) H 11/02/18 22:40 Calcium 9.6 mg/dL (8.6-10.3) 11/02/18 22:40 Total Bilirubin 0.2 mg/dL (0.3-1.0) L 11/02/18 22:40 AST 13 U/L (13-39) 11/02/18 22:40 ALT 7 U/L (7-52) 11/02/18 22:40 Alkaline Phosphatase 55 U/L (34-104) 11/02/18 22:40 Total Protein 7.4 gm/dL (6.0-8.3) 11/02/18 22:40 Albumin 3.6 gm/dL (3.7-5.3) L 11/02/18 22:40 Globulin 3.8 gm/dL 11/02/18 22:40 Albumin/Globulin Ratio 1.0 (1.0-1.8) 11/02/18 22:40 Triglycerides 56 mg/dL (<150) 11/02/18 22:40 Cholesterol 153 mg/dL (<200) 11/02/18 22:40 LDL Cholesterol Direct 82 mg/dL (75-193) 11/02/18 22:40 HDL Cholesterol 59 mg/dL (23-92) 11/02/18 22:40 - Physical Exam Vitals and I&O: Vital Signs Temp 98.4 F 11/12/18 20:42 Pulse 89 11/12/18 20:42 Resp 18 11/12/18 20:42 BP 107/70 11/12/18 20:42 Pulse Ox 97 11/12/18 20:42 Intake & Output 11/12/18 11/13/18 11/13/18 18:59 06:59 18:59 Intake Total 800 240 Balance 800 240 Intake: Oral 800 240 Other: # Voids 4 2 # Bowel Movements 0 Active Medications: Current Medications Acetaminophen (Tylenol Extra Strength) 500 mg PO Q8HR PRN PRN Reason: PAIN 1-3 Stop: 01/02/19 02:02 Acetaminophen/Codeine Phosphate (Tylenol W/Codeine #3) 1 tab PO Q8HR PRN PRN Reason: PAIN 4-10 Stop: 01/02/19 02:02 Haloperidol Lactate (Haldol) 2 mg PO BID DIANNE; Protocol Stop: 01/08/19 16:59 Last Admin: 11/13/18 09:14 Dose: Not Given Lorazepam (Ativan) 0.5 mg PO Q4HR PRN; Protocol PRN Reason: Anxiety Stop: 12/02/18 23:44 Methocarbamol (Robaxin) 500 mg PO Q8HR PRN PRN Reason: MUSCLE SPASM Stop: 01/02/19 02:02 Quetiapine Fumarate (Seroquel) 200 mg PO BID DIANNE; Protocol Stop: 01/02/19 16:59 Last Admin: 11/13/18 09:14 Dose: Not Given Zolpidem Tartrate (Ambien) 5 mg PO HS PRN PRN Reason: Insomnia Stop: 01/01/19 23:44 Last Admin: 11/07/18 21:22 Dose: 5 mg General: weak, demented HEENT: NC/AT, PERRLA Neck: Supple Lungs: CTAB Cardiovascular: RRR, Normal S1, Normal S2, without murmur Abdomen: soft, non-tender, non-distended, positive bowel sound Extremities: excoriation Neurological: no change, disorganized Internal Medicine Assmt/Plan - Assessment Assessment: - Assessment Assessment: HTN ASTHMA COPD ANEMIA SCHIZOPHRENIA ANXIETY DEPRESSION - Plan Plan: FALL PRECAUTIONS SUPPLEMENTAL O2 NEEDED CONT. SNF MEDS CONTINUE CURRENT ORDERS - Plan Plan: cpm meds renewed aleksey rn Nutritional Asmnt/Malnutr-PDOC - Dietary Evaluation Malnutrition Findings (Please click <Entered> for more info): Nutritional Asmnt/Malnutrition Start: 11/07/18 13: 33 Text: Status: Complete Freq: Protocol: Document 11/07/18 13:33 [email or web address] (Rec: 11/07/18 13:51 [email or web address]) Nutritional Asmnt/Malnutrition Patient General Information Nutritional Screening Moderate Risk Diagnosis increased agitation Pertinent Medical Hx/Surgical Hx HTN, COPD, GERD, anemia Subjective Information Pt is AOx1 per nurse note. Pt intake is 75-100% of all meals per EMR. Oswaldo score is 11. Nurse note only noted potential skin problem. Current Diet Order/ Nutrition Support No added salt Patient / S.O Can't verbalize diet edu Pertinent Medications Seroquel, ambien Pertinent Labs Glucose 110, Cr 0.5, Albumin 3 .6 Nutritional Hx/Data Height 1.68 m Height (Calculated Centimeters) 167.6 Current Weight (lbs) 72.575 kg Weight (Calculated Kilograms) 72.6 Weight (Calculated Grams) 26984.8 [place] Body Weight 142 Body Mass Index (BMI) 25.8 Weight Status Overweight GI Symptoms GI Symptoms None Last BM 11/06 Difficult in: None Food Allergies No Skin Integrity/Comment: Oswaldo 11 Current %PO Good (75-100%) Estimated Nutritional Goals BEE in Kcals: Using Current wt Calories/Kcals/Kg 23-27 Kcals Calculated 1600-6834 Protein: Using Current wt Protein g/k.8-1 Protein Calculated 58-72 Fluid: ml 0264-7727 (1ml/kcal) Nutritional Problem No current Nutrition Prob Problem N/A Intervention/Recommendation Comments 1. Continue with no added salt diet as ordered 2. Monitor PO intake, wt, labs and skin integrity 3. F/U as moderate risk in 3-5 days, 11/10-11/12 Expected Outcomes/Goals Expected Outcomes/Goals Goal: PO intake to meet at least 75% of nutritional needs .
[2018-11-13] MEDS ORDERED: Haloperidol Lactate 5 mg/mL 1mL Vial IM PRN ×2 (14:44→15:06)
[2018-11-13] MEDS ORDERED: Haloperidol Lactate 2 mg/mL Udc PO SCH (15:00)
--- NOTE | 2018-11-13 18:46 | Psychiatric Evaluation ---
DATE OF SERVICE: 11/12/2018 The patient was seen and evaluated today. I am covering for Dr. De La Fuente. This is an 88-year-old female brought in here with a history of schizophrenia with acute exacerbation. She is currently on two different antipsychotics that she is able to tolerate. Nursing staff also noted that overnight, the patient continues to respond heavily to voices and she intermittently is taking medications and no complications. ASSESSMENT AND PLAN: Due to the patient's ongoing disorganized state, thought blocking, and impulsive behavior, I am unable to formulate a safe plan. I will recommend to continue crushing the medications at nighttime to continue compliance with the patient to help alleviate those voices that she has been experiencing. JOB# [id number]
--- NOTE | 2018-11-13 23:11 | Progress Notes ---
DATE: 11/13/2018 SUBJECTIVE: Staff was spoken to. The patient is interviewed. Mood is noted to be irritable. Affect is constricted. The patient's insight and judgment are noted to be still impaired. Impulse control noted to be poor. The patient is screaming and yelling at this time. The patient has been responding to internal stimuli. The patient has to be given a dose of Zyprexa 5 mg along with the 25 mg of the Benadryl and in view of the patient's acute psychosis, it is decided to add the Haldol on a p.r.n. basis and follow the patient with the supportive therapy. ASSESSMENT: The patient is grossly psychotic and is not able to contract for safety. JOB# [id number]
[2018-11-14] MEDS: Haloperidol Lactate 2 mg/mL Udc PO SCH ×2 (09:25→16:47)
--- NOTE | 2018-11-14 15:00 | Internal Medicine Prog Note ---
Internal Medicine Subjective - Subjective Patient seen and examined:: with staff, chart reviewed Patient is:: awake, verbal, interactive Per staff patient has:: no adverse event, no episodes of fall, tolerating meds Internal Medicine Objective - Results Result Diagrams: 11/02/18 22:40 11/02/18 22:40 Recent Labs: Laboratory Last Values WBC 7.5 Th/cmm (4.8-10.8) 11/02/18 22:40 RBC 4.42 Mil/cmm (3.80-5.20) 11/02/18 22:40 Hgb 11.8 gm/dL (12-16) L 11/02/18 22:40 Hct 36.9 % (41.0-60) L 11/02/18 22:40 MCV 83.4 fl (81-100) 11/02/18 22:40 MCH 26.8 pg (27.0-31.0) L 11/02/18 22:40 MCHC Differential 32.1 pg (28.0-36.0) 11/02/18 22:40 RDW 15.3 % (11.5-20.0) 11/02/18 22:40 Plt Count 369 Th/cmm (150-400) 11/02/18 22:40 MPV 7.7 fl 11/02/18 22:40 Neutrophils % 47.4 % (40.0-80.0) 11/02/18 22:40 Lymphocytes % 36.3 % (20.0-50.0) 11/02/18 22:40 Monocytes % 11.2 % (2.0-10.0) H 11/02/18 22:40 Eosinophils % 4.7 % (0.0-5.0) 11/02/18 22:40 Basophils % 0.4 % (0.0-2.0) 11/02/18 22:40 Sodium 137 mEq/L (136-145) 11/02/18 22:40 Potassium 4.0 mEq/L (3.5-5.1) 11/02/18 22:40 Chloride 103 mEq/L (98-107) 11/02/18 22:40 Carbon Dioxide 26.8 mEq/L (21.0-31.0) 11/02/18 22:40 Anion Gap 11.2 (7.0-16.0) 11/02/18 22:40 BUN 20 mg/dL (7-25) 11/02/18 22:40 Creatinine 0.5 mg/dL (0.6-1.2) L 11/02/18 22:40 Est GFR ( Amer) > 60.0 ml/min (>90) 11/02/18 22:40 Est GFR (Non-Af Amer) > 60.0 ml/min 11/02/18 22:40 BUN/Creatinine Ratio 40.0 11/02/18 22:40 Glucose 110 mg/dL (70-105) H 11/02/18 22:40 Calcium 9.6 mg/dL (8.6-10.3) 11/02/18 22:40 Total Bilirubin 0.2 mg/dL (0.3-1.0) L 11/02/18 22:40 AST 13 U/L (13-39) 11/02/18 22:40 ALT 7 U/L (7-52) 11/02/18 22:40 Alkaline Phosphatase 55 U/L (34-104) 11/02/18 22:40 Total Protein 7.4 gm/dL (6.0-8.3) 11/02/18 22:40 Albumin 3.6 gm/dL (3.7-5.3) L 11/02/18 22:40 Globulin 3.8 gm/dL 11/02/18 22:40 Albumin/Globulin Ratio 1.0 (1.0-1.8) 11/02/18 22:40 Triglycerides 56 mg/dL (<150) 11/02/18 22:40 Cholesterol 153 mg/dL (<200) 11/02/18 22:40 LDL Cholesterol Direct 82 mg/dL (75-193) 11/02/18 22:40 HDL Cholesterol 59 mg/dL (23-92) 11/02/18 22:40 - Physical Exam Vitals and I&O: Vital Signs Temp 98.0 F 11/14/18 14:43 Pulse 80 11/14/18 14:43 Resp 20 11/14/18 14:43 BP 140/72 11/14/18 14:43 Pulse Ox 97 11/14/18 14:43 Intake & Output 11/13/18 11/14/18 11/14/18 18:59 06:59 18:59 Intake Total 120 Balance 120 Intake: Oral 120 Other: # Voids 2 2 # Bowel Movements 0 0 Active Medications: Current Medications Acetaminophen (Tylenol Extra Strength) 500 mg PO Q8HR PRN PRN Reason: PAIN 1-3 Stop: 01/02/19 02:02 Acetaminophen/Codeine Phosphate (Tylenol W/Codeine #3) 1 tab PO Q8HR PRN PRN Reason: PAIN 4-10 Stop: 01/02/19 02:02 Diphenhydramine HCl (Benadryl 50 Mg/Ml) 25 mg IM Q6HR PRN PRN Reason: Agitation Stop: 01/12/19 14:55 Haloperidol Lactate (Haldol) 5 mg IM Q6HR PRN PRN Reason: Agitation Stop: 01/12/19 14:43 Haloperidol Lactate (Haldol) 2 mg PO BID DIANNE; Protocol Stop: 01/08/19 16:59 Last Admin: 11/14/18 09:25 Dose: 2 mg Lorazepam (Ativan) 0.5 mg PO Q4HR PRN; Protocol PRN Reason: Anxiety Stop: 12/02/18 23:44 Methocarbamol (Robaxin) 500 mg PO Q8HR PRN PRN Reason: MUSCLE SPASM Stop: 01/02/19 02:02 Quetiapine Fumarate (Seroquel) 200 mg PO BID DIANNE; Protocol Stop: 01/02/19 16:59 Last Admin: 11/14/18 09:25 Dose: Not Given Zolpidem Tartrate (Ambien) 5 mg PO HS PRN PRN Reason: Insomnia Stop: 01/01/19 23:44 Last Admin: 11/07/18 21:22 Dose: 5 mg General: weak, demented HEENT: NC/AT, PERRLA Neck: Supple Lungs: CTAB Cardiovascular: RRR, Normal S1, Normal S2, without murmur Abdomen: soft, non-tender, non-distended, positive bowel sound Extremities: excoriation Neurological: no change, disorganized Internal Medicine Assmt/Plan - Assessment Assessment: - Assessment Assessment: HTN ASTHMA COPD ANEMIA SCHIZOPHRENIA ANXIETY DEPRESSION - Plan Plan: FALL PRECAUTIONS SUPPLEMENTAL O2 NEEDED CONT. SNF MEDS CONTINUE CURRENT ORDERS - Plan Plan: cpm meds renewed dw rn Nutritional Asmnt/Malnutr-PDOC - Dietary Evaluation Malnutrition Findings (Please click <Entered> for more info): Nutritional Asmnt/Malnutrition Start: 11/07/18 13: 33 Text: Status: Complete Freq: Protocol: Document 11/07/18 13:33 [email or web address] (Rec: 11/07/18 13:51 [email or web address]) Nutritional Asmnt/Malnutrition Patient General Information Nutritional Screening Moderate Risk Diagnosis increased agitation Pertinent Medical Hx/Surgical Hx HTN, COPD, GERD, anemia Subjective Information Pt is AOx1 per nurse note. Pt intake is 75-100% of all meals per EMR. Oswaldo score is 11. Nurse note only noted potential skin problem. Current Diet Order/ Nutrition Support No added salt Patient / S.O Can't verbalize diet edu Pertinent Medications Seroquel, ambien Pertinent Labs Glucose 110, Cr 0.5, Albumin 3 .6 Nutritional Hx/Data Height 1.68 m Height (Calculated Centimeters) 167.6 Current Weight (lbs) 72.575 kg Weight (Calculated Kilograms) 72.6 Weight (Calculated Grams) 93521.8 [place] Body Weight 142 Body Mass Index (BMI) 25.8 Weight Status Overweight GI Symptoms GI Symptoms None Last BM 11/06 Difficult in: None Food Allergies No Skin Integrity/Comment: Oswaldo 11 Current %PO Good (75-100%) Estimated Nutritional Goals BEE in Kcals: Using Current wt Calories/Kcals/Kg 23-27 Kcals Calculated 3122-0141 Protein: Using Current wt Protein g/k.8-1 Protein Calculated 58-72 Fluid: ml 5435-1265 (1ml/kcal) Nutritional Problem No current Nutrition Prob Problem N/A Intervention/Recommendation Comments 1. Continue with no added salt diet as ordered 2. Monitor PO intake, wt, labs and skin integrity 3. F/U as moderate risk in 3-5 days, 11/10-11/12 Expected Outcomes/Goals Expected Outcomes/Goals Goal: PO intake to meet at least 75% of nutritional needs .
--- NOTE | 2018-11-14 21:14 | Progress Notes ---
DATE: 11/14/2018 SUBJECTIVE: Staff was spoken to. The patient is interviewed. Mood is noted to be irritable. Affect is constricted. Insight and judgment at this time are noted to be still impaired. Impulse control is noted to be poor. Coping skills are noted to be poor. The patient has been having difficult time to cope with the stress. The patient is still actively responding to internal stimuli. The patient tends to scream and yell. ASSESSMENT: The patient is still grossly psychotic. PLAN: To continue the patient with the supportive therapy and followup. JOB# [id number]
[2018-11-15] MEDS: Haloperidol Lactate 2 mg/mL Udc PO SCH ×2 (10:00→17:14)
--- NOTE | 2018-11-15 12:54 | Internal Medicine Prog Note ---
Internal Medicine Subjective - Subjective Patient seen and examined:: with staff, chart reviewed Patient is:: awake, verbal, interactive Per staff patient has:: no adverse event, no episodes of fall, tolerating meds Internal Medicine Objective - Results Result Diagrams: 11/02/18 22:40 11/02/18 22:40 Recent Labs: Laboratory Last Values WBC 7.5 Th/cmm (4.8-10.8) 11/02/18 22:40 RBC 4.42 Mil/cmm (3.80-5.20) 11/02/18 22:40 Hgb 11.8 gm/dL (12-16) L 11/02/18 22:40 Hct 36.9 % (41.0-60) L 11/02/18 22:40 MCV 83.4 fl (81-100) 11/02/18 22:40 MCH 26.8 pg (27.0-31.0) L 11/02/18 22:40 MCHC Differential 32.1 pg (28.0-36.0) 11/02/18 22:40 RDW 15.3 % (11.5-20.0) 11/02/18 22:40 Plt Count 369 Th/cmm (150-400) 11/02/18 22:40 MPV 7.7 fl 11/02/18 22:40 Neutrophils % 47.4 % (40.0-80.0) 11/02/18 22:40 Lymphocytes % 36.3 % (20.0-50.0) 11/02/18 22:40 Monocytes % 11.2 % (2.0-10.0) H 11/02/18 22:40 Eosinophils % 4.7 % (0.0-5.0) 11/02/18 22:40 Basophils % 0.4 % (0.0-2.0) 11/02/18 22:40 Sodium 137 mEq/L (136-145) 11/02/18 22:40 Potassium 4.0 mEq/L (3.5-5.1) 11/02/18 22:40 Chloride 103 mEq/L (98-107) 11/02/18 22:40 Carbon Dioxide 26.8 mEq/L (21.0-31.0) 11/02/18 22:40 Anion Gap 11.2 (7.0-16.0) 11/02/18 22:40 BUN 20 mg/dL (7-25) 11/02/18 22:40 Creatinine 0.5 mg/dL (0.6-1.2) L 11/02/18 22:40 Est GFR ( Amer) > 60.0 ml/min (>90) 11/02/18 22:40 Est GFR (Non-Af Amer) > 60.0 ml/min 11/02/18 22:40 BUN/Creatinine Ratio 40.0 11/02/18 22:40 Glucose 110 mg/dL (70-105) H 11/02/18 22:40 Calcium 9.6 mg/dL (8.6-10.3) 11/02/18 22:40 Total Bilirubin 0.2 mg/dL (0.3-1.0) L 11/02/18 22:40 AST 13 U/L (13-39) 11/02/18 22:40 ALT 7 U/L (7-52) 11/02/18 22:40 Alkaline Phosphatase 55 U/L (34-104) 11/02/18 22:40 Total Protein 7.4 gm/dL (6.0-8.3) 11/02/18 22:40 Albumin 3.6 gm/dL (3.7-5.3) L 11/02/18 22:40 Globulin 3.8 gm/dL 11/02/18 22:40 Albumin/Globulin Ratio 1.0 (1.0-1.8) 11/02/18 22:40 Triglycerides 56 mg/dL (<150) 11/02/18 22:40 Cholesterol 153 mg/dL (<200) 11/02/18 22:40 LDL Cholesterol Direct 82 mg/dL (75-193) 11/02/18 22:40 HDL Cholesterol 59 mg/dL (23-92) 11/02/18 22:40 - Physical Exam Vitals and I&O: Vital Signs Temp 98.0 F 11/14/18 14:43 Pulse 80 11/14/18 14:43 Resp 20 11/14/18 14:43 BP 140/72 11/14/18 14:43 Pulse Ox 97 11/14/18 14:43 Intake & Output 11/14/18 11/15/18 11/15/18 18:59 06:59 18:59 Intake Total 1200 120 Balance 1200 120 Intake: Oral 1200 120 Other: # Voids 3 # Bowel Movements 1 Active Medications: Current Medications Acetaminophen (Tylenol Extra Strength) 500 mg PO Q8HR PRN PRN Reason: PAIN 1-3 Stop: 01/02/19 02:02 Acetaminophen/Codeine Phosphate (Tylenol W/Codeine #3) 1 tab PO Q8HR PRN PRN Reason: PAIN 4-10 Stop: 01/02/19 02:02 Diphenhydramine HCl (Benadryl 50 Mg/Ml) 25 mg IM Q6HR PRN PRN Reason: Agitation Stop: 01/12/19 14:55 Haloperidol Lactate (Haldol) 5 mg IM Q6HR PRN PRN Reason: Agitation Stop: 01/12/19 14:43 Haloperidol Lactate (Haldol) 2 mg PO BID DIANNE; Protocol Stop: 01/08/19 16:59 Last Admin: 11/15/18 10:00 Dose: Not Given Lorazepam (Ativan) 0.5 mg PO Q4HR PRN; Protocol PRN Reason: Anxiety Stop: 12/02/18 23:44 Methocarbamol (Robaxin) 500 mg PO Q8HR PRN PRN Reason: MUSCLE SPASM Stop: 01/02/19 02:02 Olanzapine (Zyprexa) 5 mg IM X1 ONE; Protocol Stop: 11/15/18 11:27 Quetiapine Fumarate (Seroquel) 200 mg PO BID DIANNE; Protocol Stop: 01/02/19 16:59 Last Admin: 11/15/18 11:00 Dose: Not Given Zolpidem Tartrate (Ambien) 5 mg PO HS PRN PRN Reason: Insomnia Stop: 01/01/19 23:44 Last Admin: 11/07/18 21:22 Dose: 5 mg General: weak, demented HEENT: NC/AT, PERRLA Neck: Supple Lungs: CTAB Cardiovascular: RRR, Normal S1, Normal S2, without murmur Abdomen: soft, non-tender, non-distended, positive bowel sound Extremities: excoriation Neurological: no change, disorganized Internal Medicine Assmt/Plan - Assessment Assessment: - Assessment Assessment: HTN ASTHMA COPD ANEMIA SCHIZOPHRENIA ANXIETY DEPRESSION - Plan Plan: FALL PRECAUTIONS SUPPLEMENTAL O2 NEEDED CONT. SNF MEDS CONTINUE CURRENT ORDERS - Plan Plan: cpm meds renewed aleksey rn Nutritional Asmnt/Malnutr-PDOC - Dietary Evaluation Malnutrition Findings (Please click <Entered> for more info): Nutritional Asmnt/Malnutrition Start: 11/07/18 13: 33 Text: Status: Complete Freq: Protocol: Document 11/07/18 13:33 [email or web address] (Rec: 11/07/18 13:51 [email or web address]) Nutritional Asmnt/Malnutrition Patient General Information Nutritional Screening Moderate Risk Diagnosis increased agitation Pertinent Medical Hx/Surgical Hx HTN, COPD, GERD, anemia Subjective Information Pt is AOx1 per nurse note. Pt intake is 75-100% of all meals per EMR. Oswaldo score is 11. Nurse note only noted potential skin problem. Current Diet Order/ Nutrition Support No added salt Patient / S.O Can't verbalize diet edu Pertinent Medications Seroquel, ambien Pertinent Labs Glucose 110, Cr 0.5, Albumin 3 .6 Nutritional Hx/Data Height 1.68 m Height (Calculated Centimeters) 167.6 Current Weight (lbs) 72.575 kg Weight (Calculated Kilograms) 72.6 Weight (Calculated Grams) 43435.8 [place] Body Weight 142 Body Mass Index (BMI) 25.8 Weight Status Overweight GI Symptoms GI Symptoms None Last BM 11/06 Difficult in: None Food Allergies No Skin Integrity/Comment: Oswaldo 11 Current %PO Good (75-100%) Estimated Nutritional Goals BEE in Kcals: Using Current wt Calories/Kcals/Kg 23-27 Kcals Calculated 3530-0590 Protein: Using Current wt Protein g/k.8-1 Protein Calculated 58-72 Fluid: ml 1749-0571 (1ml/kcal) Nutritional Problem No current Nutrition Prob Problem N/A Intervention/Recommendation Comments 1. Continue with no added salt diet as ordered 2. Monitor PO intake, wt, labs and skin integrity 3. F/U as moderate risk in 3-5 days, 11/10-11/12 Expected Outcomes/Goals Expected Outcomes/Goals Goal: PO intake to meet at least 75% of nutritional needs .
--- NOTE | 2018-11-15 23:02 | Progress Notes ---
DATE: 11/15/2018 PSYCHIATRIC PROGRESS NOTE SUBJECTIVE: Staff was spoken to. The patient is interviewed. Mood is noted to be irritable. Affect is constricted. The patient is actively responding to internal stimuli. Sleep and appetite are also noted to be very poor. The patient is grossly psychotic. The patient is not making much sense. Coping skills are noted to be extremely poor at this time. ASSESSMENT: The patient is still having acute mood swings. PLAN: To give the patient 5 mg of the Zyprexa and 25 mg of the Benadryl IM to contain the agitation and follow the patient up. JOB# [id number]
[2018-11-16] MEDS ORDERED: Haloperidol Lactate 2 mg/mL Udc PO SCH (09:00)
--- NOTE | 2018-11-16 09:45 | Progress Notes ---
DATE: 11/16/2018 PSYCHIATRIC PROGRESS NOTE SUBJECTIVE: Staff was spoken to. The patient is interviewed. Mood is noted to be irritable. Affect is constricted. The patient's insight and judgement are noted to be still impaired. The patient has been having difficult time to cope with the stress. The patient is screaming and yelling at this time and is not able to make much sense. The patient is actively responding to internal stimuli and we had to give her a dose of the Zyprexa yesterday to calm the patient down. The patient has been getting easily irritable. ASSESSMENT: The patient is still grossly psychotic. PLAN: To increase the dose on the Seroquel to 300 mg twice a day. ____. The haloperidol is going to be increased to 5 mg twice a day along with Seroquel, and use Zyprexa. The patient is going to be followed up with supportive therapy. The patient at this time is not able to contract for safety, and one antipsychotic medication is not bringing the patient's psychosis under control and hence the patient has to be placed on two antipsychotic medications to contain her behavior. Encouraged the patient to verbalize the concerns rather than to act out. The patient's personal hygiene is noted to be grossly disheveled and the patient is not ready to be discharged to a lower level of care yet. JOB# [id number]
--- NOTE | 2018-11-16 13:33 | Internal Medicine Prog Note ---
Internal Medicine Subjective - Subjective Patient seen and examined:: with staff, chart reviewed Patient is:: awake, verbal, interactive Per staff patient has:: no adverse event, no episodes of fall, tolerating meds Internal Medicine Objective - Results Result Diagrams: 11/02/18 22:40 11/02/18 22:40 Recent Labs: Laboratory Last Values WBC 7.5 Th/cmm (4.8-10.8) 11/02/18 22:40 RBC 4.42 Mil/cmm (3.80-5.20) 11/02/18 22:40 Hgb 11.8 gm/dL (12-16) L 11/02/18 22:40 Hct 36.9 % (41.0-60) L 11/02/18 22:40 MCV 83.4 fl (81-100) 11/02/18 22:40 MCH 26.8 pg (27.0-31.0) L 11/02/18 22:40 MCHC Differential 32.1 pg (28.0-36.0) 11/02/18 22:40 RDW 15.3 % (11.5-20.0) 11/02/18 22:40 Plt Count 369 Th/cmm (150-400) 11/02/18 22:40 MPV 7.7 fl 11/02/18 22:40 Neutrophils % 47.4 % (40.0-80.0) 11/02/18 22:40 Lymphocytes % 36.3 % (20.0-50.0) 11/02/18 22:40 Monocytes % 11.2 % (2.0-10.0) H 11/02/18 22:40 Eosinophils % 4.7 % (0.0-5.0) 11/02/18 22:40 Basophils % 0.4 % (0.0-2.0) 11/02/18 22:40 Sodium 137 mEq/L (136-145) 11/02/18 22:40 Potassium 4.0 mEq/L (3.5-5.1) 11/02/18 22:40 Chloride 103 mEq/L (98-107) 11/02/18 22:40 Carbon Dioxide 26.8 mEq/L (21.0-31.0) 11/02/18 22:40 Anion Gap 11.2 (7.0-16.0) 11/02/18 22:40 BUN 20 mg/dL (7-25) 11/02/18 22:40 Creatinine 0.5 mg/dL (0.6-1.2) L 11/02/18 22:40 Est GFR ( Amer) > 60.0 ml/min (>90) 11/02/18 22:40 Est GFR (Non-Af Amer) > 60.0 ml/min 11/02/18 22:40 BUN/Creatinine Ratio 40.0 11/02/18 22:40 Glucose 110 mg/dL (70-105) H 11/02/18 22:40 Calcium 9.6 mg/dL (8.6-10.3) 11/02/18 22:40 Total Bilirubin 0.2 mg/dL (0.3-1.0) L 11/02/18 22:40 AST 13 U/L (13-39) 11/02/18 22:40 ALT 7 U/L (7-52) 11/02/18 22:40 Alkaline Phosphatase 55 U/L (34-104) 11/02/18 22:40 Total Protein 7.4 gm/dL (6.0-8.3) 11/02/18 22:40 Albumin 3.6 gm/dL (3.7-5.3) L 11/02/18 22:40 Globulin 3.8 gm/dL 11/02/18 22:40 Albumin/Globulin Ratio 1.0 (1.0-1.8) 11/02/18 22:40 Triglycerides 56 mg/dL (<150) 11/02/18 22:40 Cholesterol 153 mg/dL (<200) 11/02/18 22:40 LDL Cholesterol Direct 82 mg/dL (75-193) 11/02/18 22:40 HDL Cholesterol 59 mg/dL (23-92) 11/02/18 22:40 - Physical Exam Vitals and I&O: Vital Signs Temp 97.3 F 11/16/18 06:26 Pulse 65 11/16/18 06:26 Resp 20 11/16/18 06:26 BP 120/73 11/16/18 06:26 Pulse Ox 98 11/16/18 06:26 Intake & Output 11/15/18 11/16/18 11/16/18 18:59 06:59 18:59 Intake Total 1200 240 Output Total 1 Balance 1200 239 Weight (lbs) 72.575 kg Intake: Oral 1200 240 Output: Urine/Stool Mix 1 Other: # Voids 3 # Bowel Movements 1 0 Weight Source Bedscale Active Medications: Current Medications Acetaminophen (Tylenol Extra Strength) 500 mg PO Q8HR PRN PRN Reason: PAIN 1-3 Stop: 01/02/19 02:02 Acetaminophen/Codeine Phosphate (Tylenol W/Codeine #3) 1 tab PO Q8HR PRN PRN Reason: PAIN 4-10 Stop: 01/02/19 02:02 Diphenhydramine HCl (Benadryl 50 Mg/Ml) 25 mg IM Q6HR PRN PRN Reason: Agitation Stop: 01/12/19 14:55 Last Admin: 11/15/18 11:30 Dose: 25 mg Haloperidol Lactate (Haldol) 5 mg PO BID DIANNE; Protocol Stop: 01/15/19 08:59 Last Admin: 11/16/18 09:39 Dose: 5 mg Lorazepam (Ativan) 0.5 mg PO Q4HR PRN; Protocol PRN Reason: Anxiety Stop: 12/02/18 23:44 Last Admin: 11/16/18 09:37 Dose: 0.5 mg Methocarbamol (Robaxin) 500 mg PO Q8HR PRN PRN Reason: MUSCLE SPASM Stop: 01/02/19 02:02 Quetiapine Fumarate (Seroquel) 300 mg PO BID DIANNE; Protocol Stop: 01/15/19 08:59 Last Admin: 11/16/18 09:37 Dose: 300 mg Zolpidem Tartrate (Ambien) 5 mg PO HS PRN PRN Reason: Insomnia Stop: 01/01/19 23:44 Last Admin: 11/07/18 21:22 Dose: 5 mg General: weak, demented HEENT: NC/AT, PERRLA Neck: Supple Lungs: CTAB Cardiovascular: RRR, Normal S1, Normal S2, without murmur Abdomen: soft, non-tender, non-distended, positive bowel sound Extremities: excoriation Neurological: no change, disorganized Internal Medicine Assmt/Plan - Assessment Assessment: - Assessment Assessment: HTN ASTHMA COPD ANEMIA SCHIZOPHRENIA ANXIETY DEPRESSION - Plan Plan: FALL PRECAUTIONS SUPPLEMENTAL O2 NEEDED CONT. SNF MEDS CONTINUE CURRENT ORDERS - Plan Plan: cpm meds renewed dw rn Nutritional Asmnt/Malnutr-PDOC - Dietary Evaluation Malnutrition Findings (Please click <Entered> for more info): Nutritional Asmnt/Malnutrition Start: 11/07/18 13: 33 Text: Status: Complete Freq: Protocol: Document 11/07/18 13:33 [email or web address] (Rec: 11/07/18 13:51 [email or web address]) Nutritional Asmnt/Malnutrition Patient General Information Nutritional Screening Moderate Risk Diagnosis increased agitation Pertinent Medical Hx/Surgical Hx HTN, COPD, GERD, anemia Subjective Information Pt is AOx1 per nurse note. Pt intake is 75-100% of all meals per EMR. Oswaldo score is 11. Nurse note only noted potential skin problem. Current Diet Order/ Nutrition Support No added salt Patient / S.O Can't verbalize diet edu Pertinent Medications Seroquel, ambien Pertinent Labs Glucose 110, Cr 0.5, Albumin 3 .6 Nutritional Hx/Data Height 1.68 m Height (Calculated Centimeters) 167.6 Current Weight (lbs) 72.575 kg Weight (Calculated Kilograms) 72.6 Weight (Calculated Grams) 56825.8 [place] Body Weight 142 Body Mass Index (BMI) 25.8 Weight Status Overweight GI Symptoms GI Symptoms None Last BM 11/06 Difficult in: None Food Allergies No Skin Integrity/Comment: Oswaldo 11 Current %PO Good (75-100%) Estimated Nutritional Goals BEE in Kcals: Using Current wt Calories/Kcals/Kg 23-27 Kcals Calculated 7852-8365 Protein: Using Current wt Protein g/k.8-1 Protein Calculated 58-72 Fluid: ml 1896-6594 (1ml/kcal) Nutritional Problem No current Nutrition Prob Problem N/A Intervention/Recommendation Comments 1. Continue with no added salt diet as ordered 2. Monitor PO intake, wt, labs and skin integrity 3. F/U as moderate risk in 3-5 days, 11/10-11/12 Expected Outcomes/Goals Expected Outcomes/Goals Goal: PO intake to meet at least 75% of nutritional needs .
[2018-11-16] MEDS: Haldol Oral Sol.(concentrate) 10 mg/5 mL Udc PO SCH (16:46)
[2018-11-17] MEDS: Haldol Oral Sol.(concentrate) 10 mg/5 mL Udc PO SCH ×2 (10:18→17:14)
--- NOTE | 2018-11-17 14:59 | Internal Medicine Prog Note ---
Internal Medicine Subjective - Subjective Patient seen and examined:: with staff, chart reviewed Patient is:: awake, verbal, interactive Per staff patient has:: no adverse event, no episodes of fall, tolerating meds Internal Medicine Objective - Results Result Diagrams: 11/02/18 22:40 11/02/18 22:40 Recent Labs: Laboratory Last Values WBC 7.5 Th/cmm (4.8-10.8) 11/02/18 22:40 RBC 4.42 Mil/cmm (3.80-5.20) 11/02/18 22:40 Hgb 11.8 gm/dL (12-16) L 11/02/18 22:40 Hct 36.9 % (41.0-60) L 11/02/18 22:40 MCV 83.4 fl (81-100) 11/02/18 22:40 MCH 26.8 pg (27.0-31.0) L 11/02/18 22:40 MCHC Differential 32.1 pg (28.0-36.0) 11/02/18 22:40 RDW 15.3 % (11.5-20.0) 11/02/18 22:40 Plt Count 369 Th/cmm (150-400) 11/02/18 22:40 MPV 7.7 fl 11/02/18 22:40 Neutrophils % 47.4 % (40.0-80.0) 11/02/18 22:40 Lymphocytes % 36.3 % (20.0-50.0) 11/02/18 22:40 Monocytes % 11.2 % (2.0-10.0) H 11/02/18 22:40 Eosinophils % 4.7 % (0.0-5.0) 11/02/18 22:40 Basophils % 0.4 % (0.0-2.0) 11/02/18 22:40 Sodium 137 mEq/L (136-145) 11/02/18 22:40 Potassium 4.0 mEq/L (3.5-5.1) 11/02/18 22:40 Chloride 103 mEq/L (98-107) 11/02/18 22:40 Carbon Dioxide 26.8 mEq/L (21.0-31.0) 11/02/18 22:40 Anion Gap 11.2 (7.0-16.0) 11/02/18 22:40 BUN 20 mg/dL (7-25) 11/02/18 22:40 Creatinine 0.5 mg/dL (0.6-1.2) L 11/02/18 22:40 Est GFR ( Amer) > 60.0 ml/min (>90) 11/02/18 22:40 Est GFR (Non-Af Amer) > 60.0 ml/min 11/02/18 22:40 BUN/Creatinine Ratio 40.0 11/02/18 22:40 Glucose 110 mg/dL (70-105) H 11/02/18 22:40 Calcium 9.6 mg/dL (8.6-10.3) 11/02/18 22:40 Total Bilirubin 0.2 mg/dL (0.3-1.0) L 11/02/18 22:40 AST 13 U/L (13-39) 11/02/18 22:40 ALT 7 U/L (7-52) 11/02/18 22:40 Alkaline Phosphatase 55 U/L (34-104) 11/02/18 22:40 Total Protein 7.4 gm/dL (6.0-8.3) 11/02/18 22:40 Albumin 3.6 gm/dL (3.7-5.3) L 11/02/18 22:40 Globulin 3.8 gm/dL 11/02/18 22:40 Albumin/Globulin Ratio 1.0 (1.0-1.8) 11/02/18 22:40 Triglycerides 56 mg/dL (<150) 11/02/18 22:40 Cholesterol 153 mg/dL (<200) 11/02/18 22:40 LDL Cholesterol Direct 82 mg/dL (75-193) 11/02/18 22:40 HDL Cholesterol 59 mg/dL (23-92) 11/02/18 22:40 - Physical Exam Vitals and I&O: Vital Signs Temp 97.3 F 11/17/18 06:44 Pulse 79 11/17/18 06:44 Resp 20 11/17/18 06:44 BP 119/91 11/17/18 06:44 Pulse Ox 97 11/17/18 06:44 Intake & Output 11/16/18 11/17/18 11/17/18 18:59 06:59 18:59 Intake Total 1200 Balance 1200 Intake: Oral 1200 Other: # Bowel Movements 1 Active Medications: Current Medications Acetaminophen (Tylenol Extra Strength) 500 mg PO Q8HR PRN PRN Reason: PAIN 1-3 Stop: 01/02/19 02:02 Acetaminophen/Codeine Phosphate (Tylenol W/Codeine #3) 1 tab PO Q8HR PRN PRN Reason: PAIN 4-10 Stop: 01/02/19 02:02 Diphenhydramine HCl (Benadryl 50 Mg/Ml) 25 mg IM Q6HR PRN PRN Reason: Agitation Stop: 01/12/19 14:55 Last Admin: 11/15/18 11:30 Dose: 25 mg Haloperidol Lactate (Haldol Concentrate 10mg/5ml Susp) 5 mg PO BID DIANNE; Protocol Stop: 01/15/19 08:59 Last Admin: 11/17/18 10:18 Dose: 5 mg Lorazepam (Ativan) 0.5 mg PO Q4HR PRN; Protocol PRN Reason: Anxiety Stop: 12/02/18 23:44 Last Admin: 11/17/18 10:19 Dose: 0.5 mg Methocarbamol (Robaxin) 500 mg PO Q8HR PRN PRN Reason: MUSCLE SPASM Stop: 01/02/19 02:02 Quetiapine Fumarate (Seroquel) 400 mg PO BID DIANNE; Protocol Stop: 01/16/19 16:59 Zolpidem Tartrate (Ambien) 5 mg PO HS PRN PRN Reason: Insomnia Stop: 01/01/19 23:44 Last Admin: 11/07/18 21:22 Dose: 5 mg General: weak, demented HEENT: NC/AT, PERRLA Neck: Supple Lungs: CTAB Cardiovascular: RRR, Normal S1, Normal S2, without murmur Abdomen: soft, non-tender, non-distended, positive bowel sound Extremities: excoriation Neurological: no change, disorganized Internal Medicine Assmt/Plan - Assessment Assessment: - Assessment Assessment: HTN ASTHMA COPD ANEMIA SCHIZOPHRENIA ANXIETY DEPRESSION - Plan Plan: FALL PRECAUTIONS SUPPLEMENTAL O2 NEEDED CONT. SNF MEDS CONTINUE CURRENT ORDERS - Plan Plan: cpm meds renewed aleksey rn Nutritional Asmnt/Malnutr-PDOC - Dietary Evaluation Malnutrition Findings (Please click <Entered> for more info): Nutritional Asmnt/Malnutrition Start: 12/19/18 13: 33 Text: Status: Complete Freq: Protocol: Document 11/07/18 13:33 [email or web address] (Rec: 11/07/18 13:51 [email or web address]) Nutritional Asmnt/Malnutrition Patient General Information Nutritional Screening Moderate Risk Diagnosis increased agitation Pertinent Medical Hx/Surgical Hx HTN, COPD, GERD, anemia Subjective Information Pt is AOx1 per nurse note. Pt intake is 75-100% of all meals per EMR. Oswaldo score is 11. Nurse note only noted potential skin problem. Current Diet Order/ Nutrition Support No added salt Patient / S.O Can't verbalize diet edu Pertinent Medications Seroquel, ambien Pertinent Labs Glucose 110, Cr 0.5, Albumin 3 .6 Nutritional Hx/Data Height 1.68 m Height (Calculated Centimeters) 167.6 Current Weight (lbs) 72.575 kg Weight (Calculated Kilograms) 72.6 Weight (Calculated Grams) 33357.8 [place] Body Weight 142 Body Mass Index (BMI) 25.8 Weight Status Overweight GI Symptoms GI Symptoms None Last BM 11/06 Difficult in: None Food Allergies No Skin Integrity/Comment: Oswaldo 11 Current %PO Good (75-100%) Estimated Nutritional Goals BEE in Kcals: Using Current wt Calories/Kcals/Kg 23-27 Kcals Calculated 9407-0387 Protein: Using Current wt Protein g/k.8-1 Protein Calculated 58-72 Fluid: ml 3080-7528 (1ml/kcal) Nutritional Problem No current Nutrition Prob Problem N/A Intervention/Recommendation Comments 1. Continue with no added salt diet as ordered 2. Monitor PO intake, wt, labs and skin integrity 3. F/U as moderate risk in 3-5 days, 11/10-11/12 Expected Outcomes/Goals Expected Outcomes/Goals Goal: PO intake to meet at least 75% of nutritional needs .
--- NOTE | 2018-11-17 23:42 | Progress Notes ---
DATE: 11/17/2018 SUBJECTIVE: Staff was spoken to. The patient is interviewed. Mood is noted to be irritable. Affect is constricted. Insight and judgment are noted to be still impaired. Impulse control is noted to be poor. Coping skills are noted to poor. The patient has been screaming and yelling most of the time. No side effects to the medications are noted at this time. ASSESSMENT: The patient is still class A psychotic. PLAN: Increase the Seroquel to 400 mg twice a day and follow the patient up. JOB# [id number]
[2018-11-18] MEDS: Haldol Oral Sol.(concentrate) 10 mg/5 mL Udc PO SCH ×3 (08:58→18:51)
[2018-11-18] MEDS ORDERED: Haloperidol Lactate 5 mg/mL 1mL Vial IM ONE (12:21)
--- NOTE | 2018-11-18 13:02 | Internal Medicine Prog Note ---
Internal Medicine Subjective - Subjective Patient seen and examined:: with staff, chart reviewed Patient is:: awake, verbal, interactive Per staff patient has:: no adverse event, no episodes of fall, tolerating meds Internal Medicine Objective - Results Result Diagrams: 11/02/18 22:40 11/02/18 22:40 Recent Labs: Laboratory Last Values WBC 7.5 Th/cmm (4.8-10.8) 11/02/18 22:40 RBC 4.42 Mil/cmm (3.80-5.20) 11/02/18 22:40 Hgb 11.8 gm/dL (12-16) L 11/02/18 22:40 Hct 36.9 % (41.0-60) L 11/02/18 22:40 MCV 83.4 fl (81-100) 11/02/18 22:40 MCH 26.8 pg (27.0-31.0) L 11/02/18 22:40 MCHC Differential 32.1 pg (28.0-36.0) 11/02/18 22:40 RDW 15.3 % (11.5-20.0) 11/02/18 22:40 Plt Count 369 Th/cmm (150-400) 11/02/18 22:40 MPV 7.7 fl 11/02/18 22:40 Neutrophils % 47.4 % (40.0-80.0) 11/02/18 22:40 Lymphocytes % 36.3 % (20.0-50.0) 11/02/18 22:40 Monocytes % 11.2 % (2.0-10.0) H 11/02/18 22:40 Eosinophils % 4.7 % (0.0-5.0) 11/02/18 22:40 Basophils % 0.4 % (0.0-2.0) 11/02/18 22:40 Sodium 137 mEq/L (136-145) 11/02/18 22:40 Potassium 4.0 mEq/L (3.5-5.1) 11/02/18 22:40 Chloride 103 mEq/L (98-107) 11/02/18 22:40 Carbon Dioxide 26.8 mEq/L (21.0-31.0) 11/02/18 22:40 Anion Gap 11.2 (7.0-16.0) 11/02/18 22:40 BUN 20 mg/dL (7-25) 11/02/18 22:40 Creatinine 0.5 mg/dL (0.6-1.2) L 11/02/18 22:40 Est GFR ( Amer) > 60.0 ml/min (>90) 11/02/18 22:40 Est GFR (Non-Af Amer) > 60.0 ml/min 11/02/18 22:40 BUN/Creatinine Ratio 40.0 11/02/18 22:40 Glucose 110 mg/dL (70-105) H 11/02/18 22:40 Calcium 9.6 mg/dL (8.6-10.3) 11/02/18 22:40 Total Bilirubin 0.2 mg/dL (0.3-1.0) L 11/02/18 22:40 AST 13 U/L (13-39) 11/02/18 22:40 ALT 7 U/L (7-52) 11/02/18 22:40 Alkaline Phosphatase 55 U/L (34-104) 11/02/18 22:40 Total Protein 7.4 gm/dL (6.0-8.3) 11/02/18 22:40 Albumin 3.6 gm/dL (3.7-5.3) L 11/02/18 22:40 Globulin 3.8 gm/dL 11/02/18 22:40 Albumin/Globulin Ratio 1.0 (1.0-1.8) 11/02/18 22:40 Triglycerides 56 mg/dL (<150) 11/02/18 22:40 Cholesterol 153 mg/dL (<200) 11/02/18 22:40 LDL Cholesterol Direct 82 mg/dL (75-193) 11/02/18 22:40 HDL Cholesterol 59 mg/dL (23-92) 11/02/18 22:40 - Physical Exam Vitals and I&O: Vital Signs Temp 97.6 F 11/17/18 14:00 Pulse 61 11/17/18 14:00 Resp 18 11/17/18 14:00 BP 115/70 11/17/18 14:00 Pulse Ox 96 11/17/18 14:00 Intake & Output 11/17/18 11/18/18 11/18/18 18:59 06:59 18:59 Intake Total 1300 120 Balance 1300 120 Intake: Oral 1300 120 Other: # Voids 3 2 # Bowel Movements 0 Active Medications: Current Medications Acetaminophen (Tylenol Extra Strength) 500 mg PO Q8HR PRN PRN Reason: PAIN 1-3 Stop: 01/02/19 02:02 Acetaminophen/Codeine Phosphate (Tylenol W/Codeine #3) 1 tab PO Q8HR PRN PRN Reason: PAIN 4-10 Stop: 01/02/19 02:02 Diphenhydramine HCl (Benadryl 50 Mg/Ml) 25 mg IM Q6HR PRN PRN Reason: Agitation Stop: 01/12/19 14:55 Last Admin: 11/18/18 12:29 Dose: 25 mg Haloperidol Lactate (Haldol Concentrate 10mg/5ml Susp) 5 mg PO BID DIANNE; Protocol Stop: 01/15/19 08:59 Last Admin: 11/18/18 10:36 Dose: Not Given Lorazepam (Ativan) 0.5 mg PO Q4HR PRN; Protocol PRN Reason: Anxiety Stop: 12/02/18 23:44 Last Admin: 11/17/18 20:43 Dose: 0.5 mg Methocarbamol (Robaxin) 500 mg PO Q8HR PRN PRN Reason: MUSCLE SPASM Stop: 01/02/19 02:02 Quetiapine Fumarate (Seroquel) 400 mg PO BID DIANEN; Protocol Stop: 01/16/19 16:59 Last Admin: 11/18/18 10:36 Dose: Not Given Zolpidem Tartrate (Ambien) 5 mg PO HS PRN PRN Reason: Insomnia Stop: 01/01/19 23:44 Last Admin: 11/17/18 20:43 Dose: 5 mg General: weak, demented HEENT: NC/AT, PERRLA Neck: Supple Lungs: CTAB Cardiovascular: RRR, Normal S1, Normal S2, without murmur Abdomen: soft, non-tender, non-distended, positive bowel sound Extremities: excoriation Neurological: no change, disorganized Internal Medicine Assmt/Plan - Assessment Assessment: - Assessment Assessment: HTN ASTHMA COPD ANEMIA SCHIZOPHRENIA ANXIETY DEPRESSION - Plan Plan: FALL PRECAUTIONS SUPPLEMENTAL O2 NEEDED CONT. SNF MEDS CONTINUE CURRENT ORDERS - Plan Plan: cpm meds renewed aleksey rn Nutritional Asmnt/Malnutr-PDOC - Dietary Evaluation Malnutrition Findings (Please click <Entered> for more info): Nutritional Asmnt/Malnutrition Start: 11/07/18 13: 33 Text: Status: Complete Freq: Protocol: Document 11/07/18 13:33 [email or web address] (Rec: 11/07/18 13:51 [email or web address]) Nutritional Asmnt/Malnutrition Patient General Information Nutritional Screening Moderate Risk Diagnosis increased agitation Pertinent Medical Hx/Surgical Hx HTN, COPD, GERD, anemia Subjective Information Pt is AOx1 per nurse note. Pt intake is 75-100% of all meals per EMR. Oswaldo score is 11. Nurse note only noted potential skin problem. Current Diet Order/ Nutrition Support No added salt Patient / S.O Can't verbalize diet edu Pertinent Medications Seroquel, ambien Pertinent Labs Glucose 110, Cr 0.5, Albumin 3 .6 Nutritional Hx/Data Height 1.68 m Height (Calculated Centimeters) 167.6 Current Weight (lbs) 72.575 kg Weight (Calculated Kilograms) 72.6 Weight (Calculated Grams) 09795.8 [place] Weight 142 Body Mass Index (BMI) 25.8 Weight Status Overweight GI Symptoms GI Symptoms None Last BM 11/06 Difficult in: None Food Allergies No Skin Integrity/Comment: Oswaldo 11 Current %PO Good (75-100%) Estimated Nutritional Goals BEE in Kcals: Using Current wt Calories/Kcals/Kg 23-27 Kcals Calculated 7392-5141 Protein: Using Current wt Protein g/k.8-1 Protein Calculated 58-72 Fluid: ml 4881-0833 (1ml/kcal) Nutritional Problem No current Nutrition Prob Problem N/A Intervention/Recommendation Comments 1. Continue with no added salt diet as ordered 2. Monitor PO intake, wt, labs and skin integrity 3. F/U as moderate risk in 3-5 days, 11/10-11/12 Expected Outcomes/Goals Expected Outcomes/Goals Goal: PO intake to meet at least 75% of nutritional needs .
--- NOTE | 2018-11-18 15:41 | Progress Notes ---
DATE: 11/18/2018 SUBJECTIVE: Staff was spoken to. The patient is interviewed. Mood is noted to be irritable. Affect is constricted. The patient is still paranoid. The command hallucinations are coming down and the patient, however, has been less aggressive. The patient is currently on a high dose of the Seroquel and we are giving the Haldol on top of it. ASSESSMENT: The patient is still psychotic. PLAN: To continue the patient with the supportive therapy, encouraged the patient to verbalize the concerns rather than to act out. JOB# [id number]
[2018-11-19] MEDS: Haldol Oral Sol.(concentrate) 10 mg/5 mL Udc PO SCH ×2 (09:00→16:41)
--- NOTE | 2018-11-19 12:41 | Progress Notes ---
DATE: 11/19/2018 SUBJECTIVE: Staff was spoken to. The patient is interviewed. Mood is noted to be irritable. Affect is constricted. Coping skills are noted to be extremely poor. The patient has been having difficult time to cope with the stress. The patient is very angry and upset and has been pushing the medication away. Staff are trying to get the patient to comply with the medication. The patient is conserved since the patient is refusing to comply with the medications. The patient is going to be given the medication IM, if the patient is refusing to take the medication by mouth. JOB# [id number]
--- NOTE | 2018-11-19 13:44 | Internal Medicine Prog Note ---
Internal Medicine Subjective - Subjective Patient seen and examined:: with staff, chart reviewed Patient is:: awake, verbal, interactive Per staff patient has:: no adverse event, no episodes of fall, tolerating meds Internal Medicine Objective - Results Result Diagrams: 11/02/18 22:40 11/02/18 22:40 Recent Labs: Laboratory Last Values WBC 7.5 Th/cmm (4.8-10.8) 11/02/18 22:40 RBC 4.42 Mil/cmm (3.80-5.20) 11/02/18 22:40 Hgb 11.8 gm/dL (12-16) L 11/02/18 22:40 Hct 36.9 % (41.0-60) L 11/02/18 22:40 MCV 83.4 fl (81-100) 11/02/18 22:40 MCH 26.8 pg (27.0-31.0) L 11/02/18 22:40 MCHC Differential 32.1 pg (28.0-36.0) 11/02/18 22:40 RDW 15.3 % (11.5-20.0) 11/02/18 22:40 Plt Count 369 Th/cmm (150-400) 11/02/18 22:40 MPV 7.7 fl 11/02/18 22:40 Neutrophils % 47.4 % (40.0-80.0) 11/02/18 22:40 Lymphocytes % 36.3 % (20.0-50.0) 11/02/18 22:40 Monocytes % 11.2 % (2.0-10.0) H 11/02/18 22:40 Eosinophils % 4.7 % (0.0-5.0) 11/02/18 22:40 Basophils % 0.4 % (0.0-2.0) 11/02/18 22:40 Sodium 137 mEq/L (136-145) 11/02/18 22:40 Potassium 4.0 mEq/L (3.5-5.1) 11/02/18 22:40 Chloride 103 mEq/L (98-107) 11/02/18 22:40 Carbon Dioxide 26.8 mEq/L (21.0-31.0) 11/02/18 22:40 Anion Gap 11.2 (7.0-16.0) 11/02/18 22:40 BUN 20 mg/dL (7-25) 11/02/18 22:40 Creatinine 0.5 mg/dL (0.6-1.2) L 11/02/18 22:40 Est GFR ( Amer) > 60.0 ml/min (>90) 11/02/18 22:40 Est GFR (Non-Af Amer) > 60.0 ml/min 11/02/18 22:40 BUN/Creatinine Ratio 40.0 11/02/18 22:40 Glucose 110 mg/dL (70-105) H 11/02/18 22:40 Calcium 9.6 mg/dL (8.6-10.3) 11/02/18 22:40 Total Bilirubin 0.2 mg/dL (0.3-1.0) L 11/02/18 22:40 AST 13 U/L (13-39) 11/02/18 22:40 ALT 7 U/L (7-52) 11/02/18 22:40 Alkaline Phosphatase 55 U/L (34-104) 11/02/18 22:40 Total Protein 7.4 gm/dL (6.0-8.3) 11/02/18 22:40 Albumin 3.6 gm/dL (3.7-5.3) L 11/02/18 22:40 Globulin 3.8 gm/dL 11/02/18 22:40 Albumin/Globulin Ratio 1.0 (1.0-1.8) 11/02/18 22:40 Triglycerides 56 mg/dL (<150) 11/02/18 22:40 Cholesterol 153 mg/dL (<200) 11/02/18 22:40 LDL Cholesterol Direct 82 mg/dL (75-193) 11/02/18 22:40 HDL Cholesterol 59 mg/dL (23-92) 11/02/18 22:40 - Physical Exam Vitals and I&O: Vital Signs Temp 97.8 F 11/18/18 20:00 Pulse 68 11/18/18 20:00 Resp 16 11/18/18 20:00 BP 118/70 11/18/18 20:00 Pulse Ox 98 11/18/18 20:00 Intake & Output 11/18/18 11/19/18 11/19/18 18:59 06:59 18:59 Intake Total 750 Balance 750 Intake: Oral 750 Other: # Voids 4 Active Medications: Current Medications Acetaminophen (Tylenol Extra Strength) 500 mg PO Q8HR PRN PRN Reason: PAIN 1-3 Stop: 01/02/19 02:02 Acetaminophen/Codeine Phosphate (Tylenol W/Codeine #3) 1 tab PO Q8HR PRN PRN Reason: PAIN 4-10 Stop: 01/02/19 02:02 Diphenhydramine HCl (Benadryl 50 Mg/Ml) 25 mg IM Q6HR PRN PRN Reason: Agitation Stop: 01/12/19 14:55 Last Admin: 11/18/18 12:29 Dose: 25 mg Haloperidol Lactate (Haldol Concentrate 10mg/5ml Susp) 5 mg PO BID DIANNE; Protocol Stop: 01/15/19 08:59 Last Admin: 11/19/18 09:00 Dose: Not Given Haloperidol Lactate (Haldol) 5 mg IM BID PRN PRN Reason: Agitation if refused po Stop: 01/18/19 11:45 Lorazepam (Ativan) 0.5 mg PO Q4HR PRN; Protocol PRN Reason: Anxiety Stop: 12/02/18 23:44 Last Admin: 11/17/18 20:43 Dose: 0.5 mg Methocarbamol (Robaxin) 500 mg PO Q8HR PRN PRN Reason: MUSCLE SPASM Stop: 01/02/19 02:02 Quetiapine Fumarate (Seroquel) 400 mg PO BID DIANNE; Protocol Stop: 01/16/19 16:59 Last Admin: 11/19/18 09:00 Dose: Not Given Zolpidem Tartrate (Ambien) 5 mg PO HS PRN PRN Reason: Insomnia Stop: 01/01/19 23:44 Last Admin: 11/18/18 21:18 Dose: 5 mg General: weak, demented HEENT: NC/AT, PERRLA Neck: Supple Lungs: CTAB Cardiovascular: RRR, Normal S1, Normal S2, without murmur Abdomen: soft, non-tender, non-distended, positive bowel sound Extremities: excoriation Neurological: no change, disorganized Internal Medicine Assmt/Plan - Assessment Assessment: - Assessment Assessment: HTN ASTHMA COPD ANEMIA SCHIZOPHRENIA ANXIETY DEPRESSION - Plan Plan: FALL PRECAUTIONS SUPPLEMENTAL O2 NEEDED CONT. SNF MEDS CONTINUE CURRENT ORDERS - Plan Plan: cpm meds renewed dw rn Nutritional Asmnt/Malnutr-PDOC - Dietary Evaluation Malnutrition Findings (Please click <Entered> for more info): Nutritional Asmnt/Malnutrition Start: 11/07/18 13: 33 Text: Status: Complete Freq: Protocol: Document 11/07/18 13:33 [email or web address] (Rec: 11/07/18 13:51 [email or web address]) Nutritional Asmnt/Malnutrition Patient General Information Nutritional Screening Moderate Risk Diagnosis increased agitation Pertinent Medical Hx/Surgical Hx HTN, COPD, GERD, anemia Subjective Information Pt is AOx1 per nurse note. Pt intake is 75-100% of all meals per EMR. Oswaldo score is 11. Nurse note only noted potential skin problem. Current Diet Order/ Nutrition Support No added salt Patient / S.O Can't verbalize diet edu Pertinent Medications Seroquel, ambien Pertinent Labs Glucose 110, Cr 0.5, Albumin 3 .6 Nutritional Hx/Data Height 1.68 m Height (Calculated Centimeters) 167.6 Current Weight (lbs) 72.575 kg Weight (Calculated Kilograms) 72.6 Weight (Calculated Grams) 63217.8 [place] Body Weight 142 Body Mass Index (BMI) 25.8 Weight Status Overweight GI Symptoms GI Symptoms None Last BM 11/06 Difficult in: None Food Allergies No Skin Integrity/Comment: Oswaldo 11 Current %PO Good (75-100%) Estimated Nutritional Goals BEE in Kcals: Using Current wt Calories/Kcals/Kg 23-27 Kcals Calculated 1876-0263 Protein: Using Current wt Protein g/k.8-1 Protein Calculated 58-72 Fluid: ml 3856-8875 (1ml/kcal) Nutritional Problem No current Nutrition Prob Problem N/A Intervention/Recommendation Comments 1. Continue with no added salt diet as ordered 2. Monitor PO intake, wt, labs and skin integrity 3. F/U as moderate risk in 3-5 days, 11/10-11/12 Expected Outcomes/Goals Expected Outcomes/Goals Goal: PO intake to meet at least 75% of nutritional needs .
[2018-11-19] MEDS: Haloperidol Lactate 5 mg/mL 1mL Vial IM PRN (16:40)
[2018-11-20] MEDS: Haldol Oral Sol.(concentrate) 10 mg/5 mL Udc PO SCH ×3 (10:49→17:53)
[2018-11-20] MEDS: Haloperidol Lactate 5 mg/mL 1mL Vial IM PRN ×2 (10:49→17:38)
--- NOTE | 2018-11-20 13:27 | Internal Medicine Prog Note ---
Internal Medicine Subjective - Subjective Patient seen and examined:: with staff, chart reviewed Patient is:: awake, verbal, interactive Per staff patient has:: no adverse event, no episodes of fall, tolerating meds Internal Medicine Objective - Results Result Diagrams: 11/02/18 22:40 11/02/18 22:40 Recent Labs: Laboratory Last Values WBC 7.5 Th/cmm (4.8-10.8) 11/02/18 22:40 RBC 4.42 Mil/cmm (3.80-5.20) 11/02/18 22:40 Hgb 11.8 gm/dL (12-16) L 11/02/18 22:40 Hct 36.9 % (41.0-60) L 11/02/18 22:40 MCV 83.4 fl (81-100) 11/02/18 22:40 MCH 26.8 pg (27.0-31.0) L 11/02/18 22:40 MCHC Differential 32.1 pg (28.0-36.0) 11/02/18 22:40 RDW 15.3 % (11.5-20.0) 11/02/18 22:40 Plt Count 369 Th/cmm (150-400) 11/02/18 22:40 MPV 7.7 fl 11/02/18 22:40 Neutrophils % 47.4 % (40.0-80.0) 11/02/18 22:40 Lymphocytes % 36.3 % (20.0-50.0) 11/02/18 22:40 Monocytes % 11.2 % (2.0-10.0) H 11/02/18 22:40 Eosinophils % 4.7 % (0.0-5.0) 11/02/18 22:40 Basophils % 0.4 % (0.0-2.0) 11/02/18 22:40 Sodium 137 mEq/L (136-145) 11/02/18 22:40 Potassium 4.0 mEq/L (3.5-5.1) 11/02/18 22:40 Chloride 103 mEq/L (98-107) 11/02/18 22:40 Carbon Dioxide 26.8 mEq/L (21.0-31.0) 11/02/18 22:40 Anion Gap 11.2 (7.0-16.0) 11/02/18 22:40 BUN 20 mg/dL (7-25) 11/02/18 22:40 Creatinine 0.5 mg/dL (0.6-1.2) L 11/02/18 22:40 Est GFR ( Amer) > 60.0 ml/min (>90) 11/02/18 22:40 Est GFR (Non-Af Amer) > 60.0 ml/min 11/02/18 22:40 BUN/Creatinine Ratio 40.0 11/02/18 22:40 Glucose 110 mg/dL (70-105) H 11/02/18 22:40 Calcium 9.6 mg/dL (8.6-10.3) 11/02/18 22:40 Total Bilirubin 0.2 mg/dL (0.3-1.0) L 11/02/18 22:40 AST 13 U/L (13-39) 11/02/18 22:40 ALT 7 U/L (7-52) 11/02/18 22:40 Alkaline Phosphatase 55 U/L (34-104) 11/02/18 22:40 Total Protein 7.4 gm/dL (6.0-8.3) 11/02/18 22:40 Albumin 3.6 gm/dL (3.7-5.3) L 11/02/18 22:40 Globulin 3.8 gm/dL 11/02/18 22:40 Albumin/Globulin Ratio 1.0 (1.0-1.8) 11/02/18 22:40 Triglycerides 56 mg/dL (<150) 11/02/18 22:40 Cholesterol 153 mg/dL (<200) 11/02/18 22:40 LDL Cholesterol Direct 82 mg/dL (75-193) 11/02/18 22:40 HDL Cholesterol 59 mg/dL (23-92) 11/02/18 22:40 - Physical Exam Vitals and I&O: Vital Signs Temp 97.9 F 11/20/18 06:25 Pulse 102 11/20/18 06:25 Resp 20 11/20/18 06:25 BP 121/50 11/20/18 06:25 Pulse Ox 96 11/20/18 06:25 Intake & Output 11/19/18 11/20/18 11/20/18 18:59 06:59 18:59 Intake Total 700 300 Output Total 1 Balance 700 299 Intake: Oral 700 300 Output: Urine/Stool Mix 1 Other: # Voids 3 1 # Bowel Movements 0 0 Active Medications: Current Medications Acetaminophen (Tylenol Extra Strength) 500 mg PO Q8HR PRN PRN Reason: PAIN 1-3 Stop: 01/02/19 02:02 Acetaminophen/Codeine Phosphate (Tylenol W/Codeine #3) 1 tab PO Q8HR PRN PRN Reason: PAIN 4-10 Stop: 01/02/19 02:02 Diphenhydramine HCl (Benadryl 50 Mg/Ml) 25 mg IM Q6HR PRN PRN Reason: Agitation Stop: 01/12/19 14:55 Last Admin: 11/20/18 10:49 Dose: 25 mg Haloperidol Lactate (Haldol Concentrate 10mg/5ml Susp) 5 mg PO BID DIANNE; Protocol Stop: 01/15/19 08:59 Last Admin: 11/20/18 10:49 Dose: Not Given Haloperidol Lactate (Haldol) 5 mg IM BID PRN PRN Reason: Agitation if refused po Stop: 01/18/19 11:45 Last Admin: 11/20/18 10:49 Dose: 5 mg Lorazepam (Ativan) 0.5 mg PO Q4HR PRN; Protocol PRN Reason: Anxiety Stop: 12/02/18 23:44 Last Admin: 11/17/18 20:43 Dose: 0.5 mg Methocarbamol (Robaxin) 500 mg PO Q8HR PRN PRN Reason: MUSCLE SPASM Stop: 01/02/19 02:02 Quetiapine Fumarate (Seroquel) 400 mg PO BID DIANNE; Protocol Stop: 01/16/19 16:59 Last Admin: 11/20/18 10:49 Dose: 400 mg Zolpidem Tartrate (Ambien) 5 mg PO HS PRN PRN Reason: Insomnia Stop: 01/01/19 23:44 Last Admin: 11/19/18 20:39 Dose: 5 mg General: weak, demented HEENT: NC/AT, PERRLA Neck: Supple Lungs: CTAB Cardiovascular: RRR, Normal S1, Normal S2, without murmur Abdomen: soft, non-tender, non-distended, positive bowel sound Extremities: excoriation Neurological: no change, disorganized Internal Medicine Assmt/Plan - Assessment Assessment: - Assessment Assessment: HTN ASTHMA COPD ANEMIA SCHIZOPHRENIA ANXIETY DEPRESSION - Plan Plan: FALL PRECAUTIONS SUPPLEMENTAL O2 NEEDED CONT. SNF MEDS CONTINUE CURRENT ORDERS - Plan Plan: cpm meds renewed al[place]ey rn Nutritional Asmnt/Malnutr-PDOC - Dietary Evaluation Malnutrition Findings (Please click <Entered> for more info): Nutritional Asmnt/Malnutrition Start: 11/07/18 13: 33 Text: Status: Complete Freq: Protocol: Document 11/07/18 13:33 [email or web address] (Rec: 11/07/18 13:51 [email or web address]) Nutritional Asmnt/Malnutrition Patient General Information Nutritional Screening Moderate Risk Diagnosis increased agitation Pertinent Medical Hx/Surgical Hx HTN, COPD, GERD, anemia Subjective Information Pt is AOx1 per nurse note. Pt intake is 75-100% of all meals per EMR. Oswaldo score is 11. Nurse note only noted potential skin problem. Current Diet Order/ Nutrition Support No added salt Patient / S.O Can't verbalize diet edu Pertinent Medications Seroquel, ambien Pertinent Labs Glucose 110, Cr 0.5, Albumin 3 .6 Nutritional Hx/Data Height 1.68 m Height (Calculated Centimeters) 167.6 Current Weight (lbs) 72.575 kg Weight (Calculated Kilograms) 72.6 Weight (Calculated Grams) 12857.8 [place] Body Weight 142 Body Mass Index (BMI) 25.8 Weight Status Overweight GI Symptoms GI Symptoms None Last BM 11/06 Difficult in: None Food Allergies No Skin Integrity/Comment: Oswaldo 11 Current %PO Good (75-100%) Estimated Nutritional Goals BEE in Kcals: Using Current wt Calories/Kcals/Kg 23-27 Kcals Calculated 1697-1204 Protein: Using Current wt Protein g/k.8-1 Protein Calculated 58-72 Fluid: ml 6877-3668 (1ml/kcal) Nutritional Problem No current Nutrition Prob Problem N/A Intervention/Recommendation Comments 1. Continue with no added salt diet as ordered 2. Monitor PO intake, wt, labs and skin integrity 3. F/U as moderate risk in 3-5 days, 11/10-11/12 Expected Outcomes/Goals Expected Outcomes/Goals Goal: PO intake to meet at least 75% of nutritional needs .
--- NOTE | 2018-11-20 21:32 | Progress Notes ---
DATE: 11/20/2018 SUBJECTIVE: Staff was spoken to. The patient is interviewed. Mood is noted to be irritable. Affect is constricted. The patient's coping skills at this time are noted to be very poor. Insight and judgment also noted to be very much impaired. The patient has been testing the limits, continues to be very paranoid and has been reluctant to take the medications. In view of this one, it is decided if the conservator is going to be approving the patient is going to be given a long-acting Haldol Decanoate. ASSESSMENT: The patient is still psychotic. PLAN: To continue the patient with the supportive therapy and followup. JOB# [id number]
--- NOTE | 2018-11-20 22:27 | Progress Notes ---
DATE: 11/19/2018 SUBJECTIVE: The patient is seen and interviewed. The patient presents with an irritable mood. Affect is constricted. The patient is easily agitated. The staff reports that the patient has been refusing medications. The staff indicates the patient was given IM medication due to refusing oral medications. The patient states that she does not believe she needs to be in the hospital. OBJECTIVE: Mood irritable. Affect constricted. Thought process, confused. The patient seems to be responding to internal stimuli. Positive for paranoid ideation. The patient's behavior has been un-redirectable and noncompliant with care and treatment. ASSESSMENT: History of schizophrenia, chronic paranoid type, in acute exacerbation. PLAN: The attending psychiatrist continues to manage the patient's medications. We provided motivational enhancement for the patient to become compliant and stay compliant with all aspects of her care and treatment. We provided de-escalation as well as stress management to increase the patient's frustration tolerance and to motivate the patient towards her treatment goals. We reviewed coping strategies for chronic severe mental illness. Reality integration given. We will follow up in 2-3 days to continue present treatment. JOB# [id number] WILLIE
[2018-11-21] MEDS: Haldol Oral Sol.(concentrate) 10 mg/5 mL Udc PO SCH ×2 (08:05→16:35)
[2018-11-21] MEDS: Haloperidol Lactate 5 mg/mL 1mL Vial IM PRN ×2 (09:47→18:18)
--- NOTE | 2018-11-21 13:02 | Internal Medicine Prog Note ---
Internal Medicine Subjective - Subjective Patient seen and examined:: with staff, chart reviewed Patient is:: awake, verbal, interactive Per staff patient has:: no adverse event, no episodes of fall, tolerating meds Internal Medicine Objective - Results Result Diagrams: 11/02/18 22:40 11/02/18 22:40 Recent Labs: Laboratory Last Values WBC 7.5 Th/cmm (4.8-10.8) 11/02/18 22:40 RBC 4.42 Mil/cmm (3.80-5.20) 11/02/18 22:40 Hgb 11.8 gm/dL (12-16) L 11/02/18 22:40 Hct 36.9 % (41.0-60) L 11/02/18 22:40 MCV 83.4 fl (81-100) 11/02/18 22:40 MCH 26.8 pg (27.0-31.0) L 11/02/18 22:40 MCHC Differential 32.1 pg (28.0-36.0) 11/02/18 22:40 RDW 15.3 % (11.5-20.0) 11/02/18 22:40 Plt Count 369 Th/cmm (150-400) 11/02/18 22:40 MPV 7.7 fl 11/02/18 22:40 Neutrophils % 47.4 % (40.0-80.0) 11/02/18 22:40 Lymphocytes % 36.3 % (20.0-50.0) 11/02/18 22:40 Monocytes % 11.2 % (2.0-10.0) H 11/02/18 22:40 Eosinophils % 4.7 % (0.0-5.0) 11/02/18 22:40 Basophils % 0.4 % (0.0-2.0) 11/02/18 22:40 Sodium 137 mEq/L (136-145) 11/02/18 22:40 Potassium 4.0 mEq/L (3.5-5.1) 11/02/18 22:40 Chloride 103 mEq/L (98-107) 11/02/18 22:40 Carbon Dioxide 26.8 mEq/L (21.0-31.0) 11/02/18 22:40 Anion Gap 11.2 (7.0-16.0) 11/02/18 22:40 BUN 20 mg/dL (7-25) 11/02/18 22:40 Creatinine 0.5 mg/dL (0.6-1.2) L 11/02/18 22:40 Est GFR ( Amer) > 60.0 ml/min (>90) 11/02/18 22:40 Est GFR (Non-Af Amer) > 60.0 ml/min 11/02/18 22:40 BUN/Creatinine Ratio 40.0 11/02/18 22:40 Glucose 110 mg/dL (70-105) H 11/02/18 22:40 Calcium 9.6 mg/dL (8.6-10.3) 11/02/18 22:40 Total Bilirubin 0.2 mg/dL (0.3-1.0) L 11/02/18 22:40 AST 13 U/L (13-39) 11/02/18 22:40 ALT 7 U/L (7-52) 11/02/18 22:40 Alkaline Phosphatase 55 U/L (34-104) 11/02/18 22:40 Total Protein 7.4 gm/dL (6.0-8.3) 11/02/18 22:40 Albumin 3.6 gm/dL (3.7-5.3) L 11/02/18 22:40 Globulin 3.8 gm/dL 11/02/18 22:40 Albumin/Globulin Ratio 1.0 (1.0-1.8) 11/02/18 22:40 Triglycerides 56 mg/dL (<150) 11/02/18 22:40 Cholesterol 153 mg/dL (<200) 11/02/18 22:40 LDL Cholesterol Direct 82 mg/dL (75-193) 11/02/18 22:40 HDL Cholesterol 59 mg/dL (23-92) 11/02/18 22:40 - Physical Exam Vitals and I&O: Vital Signs Temp 97.1 F 11/21/18 06:30 Pulse 110 11/21/18 06:30 Resp 20 11/21/18 06:30 BP 131/89 11/21/18 06:30 Pulse Ox 96 11/21/18 06:30 Intake & Output 11/20/18 11/21/18 11/21/18 18:59 06:59 18:59 Intake Total 120 Balance 120 Intake: Oral 120 Other: # Voids 1 # Bowel Movements 0 Active Medications: Current Medications Acetaminophen (Tylenol Extra Strength) 500 mg PO Q8HR PRN PRN Reason: PAIN 1-3 Stop: 01/02/19 02:02 Acetaminophen/Codeine Phosphate (Tylenol W/Codeine #3) 1 tab PO Q8HR PRN PRN Reason: PAIN 4-10 Stop: 01/02/19 02:02 Diphenhydramine HCl (Benadryl 50 Mg/Ml) 25 mg IM Q6HR PRN PRN Reason: Agitation Stop: 01/12/19 14:55 Last Admin: 11/21/18 09:47 Dose: 25 mg Haloperidol Decanoate (Haldol Dec) 50 mg IM QMONTH [facility]; Protocol Stop: 01/20/19 16:59 Haloperidol Lactate (Haldol Concentrate 10mg/5ml Susp) 5 mg PO BID DIANNE; Protocol Stop: 01/15/19 08:59 Last Admin: 11/21/18 08:05 Dose: Not Given Haloperidol Lactate (Haldol) 5 mg IM BID PRN PRN Reason: Agitation if refused po Stop: 01/18/19 11:45 Last Admin: 11/21/18 09:47 Dose: 5 mg Lorazepam (Ativan) 0.5 mg PO Q4HR PRN; Protocol PRN Reason: Anxiety Stop: 12/02/18 23:44 Last Admin: 11/17/18 20:43 Dose: 0.5 mg Methocarbamol (Robaxin) 500 mg PO Q8HR PRN PRN Reason: MUSCLE SPASM Stop: 01/02/19 02:02 Quetiapine Fumarate (Seroquel) 400 mg PO BID [facility]; Protocol Stop: 01/16/19 16:59 Last Admin: 11/21/18 08:05 Dose: Not Given Zolpidem Tartrate (Ambien) 5 mg PO HS PRN PRN Reason: Insomnia Stop: 01/01/19 23:44 Last Admin: 11/19/18 20:39 Dose: 5 mg General: weak, demented HEENT: NC/AT, PERRLA Neck: Supple Lungs: CTAB Cardiovascular: RRR, Normal S1, Normal S2, without murmur Abdomen: soft, non-tender, non-distended, positive bowel sound Extremities: excoriation Neurological: no change, disorganized Internal Medicine Assmt/Plan - Assessment Assessment: - Assessment Assessment: HTN ASTHMA COPD ANEMIA SCHIZOPHRENIA ANXIETY DEPRESSION - Plan Plan: FALL PRECAUTIONS SUPPLEMENTAL O2 NEEDED CONT. SNF MEDS CONTINUE CURRENT ORDERS - Plan Plan: cpm meds renewed aleksey rn Nutritional Asmnt/Malnutr-PDOC - Dietary Evaluation Malnutrition Findings (Please click <Entered> for more info): Nutritional Asmnt/Malnutrition Start: 11/07/18 13: 33 Text: Status: Complete Freq: Protocol: Document 11/07/18 13:33 [email or web address] (Rec: 11/07/18 13:51 [email or web address]) Nutritional Asmnt/Malnutrition Patient General Information Nutritional Screening Moderate Risk Diagnosis increased agitation Pertinent Medical Hx/Surgical Hx HTN, COPD, GERD, anemia Subjective Information Pt is AOx1 per nurse note. Pt intake is 75-100% of all meals per EMR. Oswaldo score is 11. Nurse note only noted potential skin problem. Current Diet Order/ Nutrition Support No added salt Patient / S.O Can't verbalize diet edu Pertinent Medications Seroquel, ambien Pertinent Labs Glucose 110, Cr 0.5, Albumin 3 .6 Nutritional Hx/Data Height 1.68 m Height (Calculated Centimeters) 167.6 Current Weight (lbs) 72.575 kg Weight (Calculated Kilograms) 72.6 Weight (Calculated Grams) 10214.8 [place] Body Weight 142 Body Mass Index (BMI) 25.8 Weight Status Overweight GI Symptoms GI Symptoms None Last BM 11/06 Difficult in: None Food Allergies No Skin Integrity/Comment: Oswaldo 11 Current %PO Good (75-100%) Estimated Nutritional Goals BEE in Kcals: Using Current wt Calories/Kcals/Kg 23-27 Kcals Calculated 6812-0089 Protein: Using Current wt Protein g/k.8-1 Protein Calculated 58-72 Fluid: ml 7987-6585 (1ml/kcal) Nutritional Problem No current Nutrition Prob Problem N/A Intervention/Recommendation Comments 1. Continue with no added salt diet as ordered 2. Monitor PO intake, wt, labs and skin integrity 3. F/U as moderate risk in 3-5 days, 11/10-11/12 Expected Outcomes/Goals Expected Outcomes/Goals Goal: PO intake to meet at least 75% of nutritional needs .
--- NOTE | 2018-11-21 16:40 | Progress Notes ---
DATE: 11/21/2018 PSYCHOLOGY PROGRESS NOTE SUBJECTIVE: The patient is seen and interviewed. The patient presents as withdrawn and is limited in communication with this hand sign writer. Mood is irritable. Staff reports the patient continues to test the limits of the staff. The patient presents with suspiciousness and paranoid ideation persists. The patient is conserved. OBJECTIVE: Mood irritable. Affect constricted. Thought process is confused. There is evidence of paranoid ideation. The patient's behavior has been reluctant to take medications. ASSESSMENT: Schizophrenia, chronic paranoid type, in acute exacerbation. PLAN: The patient has been seen by Dr. Castellon. There is a discussion with the conservator with possible approval needed to provide the patient with longer acting Haldol Decanoate. This hand sign writer provided reality orientation, differentiation and integration. Remotivation towards treatment goals and compliance with care, was also provided along with supportive therapy. This hand sign writer will follow up one time prior to the patient's discharge to assess that the discharge criteria is met with respect to the patient being able to demonstrate emotional and self-regulation and is compliant with all aspects of his care and treatment. JOB# [id number] [email or web address]
--- NOTE | 2018-11-21 23:35 | Progress Notes ---
DATE: 11/21/2018 SUBJECTIVE: Staff was spoken to. The patient is interviewed. Mood is noted to be irritable. Affect is constricted. Insight and judgment at this time are noted to be still impaired. Impulse control is noted to be limited. The patient has been screaming and yelling. The patient has been given the dose of the Haldol Decanoate. ASSESSMENT: The patient is still grossly psychotic. PLAN: To continue the patient with the supportive therapy and followup. JOB# [id number]
[2018-11-22] MEDS: Haldol Oral Sol.(concentrate) 10 mg/5 mL Udc PO SCH ×2 (09:30→16:27)
[2018-11-22] MEDS: Haloperidol Lactate 5 mg/mL 1mL Vial IM PRN ×2 (10:10→17:37)
--- NOTE | 2018-11-22 12:53 | Internal Medicine Prog Note ---
Internal Medicine Subjective - Subjective Patient seen and examined:: with staff, chart reviewed Patient is:: awake, verbal, interactive Per staff patient has:: no adverse event, no episodes of fall, tolerating meds Internal Medicine Objective - Results Result Diagrams: 11/02/18 22:40 11/02/18 22:40 Recent Labs: Laboratory Last Values WBC 7.5 Th/cmm (4.8-10.8) 11/02/18 22:40 RBC 4.42 Mil/cmm (3.80-5.20) 11/02/18 22:40 Hgb 11.8 gm/dL (12-16) L 11/02/18 22:40 Hct 36.9 % (41.0-60) L 11/02/18 22:40 MCV 83.4 fl (81-100) 11/02/18 22:40 MCH 26.8 pg (27.0-31.0) L 11/02/18 22:40 MCHC Differential 32.1 pg (28.0-36.0) 11/02/18 22:40 RDW 15.3 % (11.5-20.0) 11/02/18 22:40 Plt Count 369 Th/cmm (150-400) 11/02/18 22:40 MPV 7.7 fl 11/02/18 22:40 Neutrophils % 47.4 % (40.0-80.0) 11/02/18 22:40 Lymphocytes % 36.3 % (20.0-50.0) 11/02/18 22:40 Monocytes % 11.2 % (2.0-10.0) H 11/02/18 22:40 Eosinophils % 4.7 % (0.0-5.0) 11/02/18 22:40 Basophils % 0.4 % (0.0-2.0) 11/02/18 22:40 Sodium 137 mEq/L (136-145) 11/02/18 22:40 Potassium 4.0 mEq/L (3.5-5.1) 11/02/18 22:40 Chloride 103 mEq/L (98-107) 11/02/18 22:40 Carbon Dioxide 26.8 mEq/L (21.0-31.0) 11/02/18 22:40 Anion Gap 11.2 (7.0-16.0) 11/02/18 22:40 BUN 20 mg/dL (7-25) 11/02/18 22:40 Creatinine 0.5 mg/dL (0.6-1.2) L 11/02/18 22:40 Est GFR ( Amer) > 60.0 ml/min (>90) 11/02/18 22:40 Est GFR (Non-Af Amer) > 60.0 ml/min 11/02/18 22:40 BUN/Creatinine Ratio 40.0 11/02/18 22:40 Glucose 110 mg/dL (70-105) H 11/02/18 22:40 Calcium 9.6 mg/dL (8.6-10.3) 11/02/18 22:40 Total Bilirubin 0.2 mg/dL (0.3-1.0) L 11/02/18 22:40 AST 13 U/L (13-39) 11/02/18 22:40 ALT 7 U/L (7-52) 11/02/18 22:40 Alkaline Phosphatase 55 U/L (34-104) 11/02/18 22:40 Total Protein 7.4 gm/dL (6.0-8.3) 11/02/18 22:40 Albumin 3.6 gm/dL (3.7-5.3) L 11/02/18 22:40 Globulin 3.8 gm/dL 11/02/18 22:40 Albumin/Globulin Ratio 1.0 (1.0-1.8) 11/02/18 22:40 Triglycerides 56 mg/dL (<150) 11/02/18 22:40 Cholesterol 153 mg/dL (<200) 11/02/18 22:40 LDL Cholesterol Direct 82 mg/dL (75-193) 11/02/18 22:40 HDL Cholesterol 59 mg/dL (23-92) 11/02/18 22:40 - Physical Exam Vitals and I&O: Vital Signs Temp 97.2 F 11/21/18 20:00 Pulse 118 11/21/18 20:00 Resp 19 11/21/18 20:00 BP 101/50 11/21/18 20:00 Pulse Ox 98 11/21/18 20:00 Intake & Output 11/21/18 11/22/18 11/22/18 18:59 06:59 18:59 Intake Total 480 250 Balance 480 250 Intake: Oral 480 250 Other: # Voids 2 2 # Bowel Movements 0 Active Medications: Current Medications Acetaminophen (Tylenol Extra Strength) 500 mg PO Q8HR PRN PRN Reason: PAIN 1-3 Stop: 01/02/19 02:02 Acetaminophen/Codeine Phosphate (Tylenol W/Codeine #3) 1 tab PO Q8HR PRN PRN Reason: PAIN 4-10 Stop: 01/02/19 02:02 Diphenhydramine HCl (Benadryl 50 Mg/Ml) 25 mg IM Q6HR PRN PRN Reason: Agitation Stop: 01/12/19 14:55 Last Admin: 11/22/18 10:10 Dose: 25 mg Haloperidol Decanoate (Haldol Dec) 50 mg IM QMONTH [facility]; Protocol Stop: 01/20/19 16:59 Last Admin: 11/21/18 18:17 Dose: 50 mg Haloperidol Lactate (Haldol Concentrate 10mg/5ml Susp) 5 mg PO BID DIANNE; Protocol Stop: 01/15/19 08:59 Last Admin: 11/22/18 09:30 Dose: Not Given Haloperidol Lactate (Haldol) 5 mg IM BID PRN PRN Reason: Agitation if refused po Stop: 01/18/19 11:45 Last Admin: 11/22/18 10:10 Dose: 5 mg Lorazepam (Ativan) 0.5 mg PO Q4HR PRN; Protocol PRN Reason: Anxiety Stop: 12/02/18 23:44 Last Admin: 11/17/18 20:43 Dose: 0.5 mg Methocarbamol (Robaxin) 500 mg PO Q8HR PRN PRN Reason: MUSCLE SPASM Stop: 01/02/19 02:02 Quetiapine Fumarate (Seroquel) 400 mg PO BID [facility]; Protocol Stop: 01/16/19 16:59 Last Admin: 11/22/18 09:30 Dose: Not Given Zolpidem Tartrate (Ambien) 5 mg PO HS PRN PRN Reason: Insomnia Stop: 01/01/19 23:44 Last Admin: 11/19/18 20:39 Dose: 5 mg General: weak, demented HEENT: NC/AT, PERRLA Neck: Supple Lungs: CTAB Cardiovascular: RRR, Normal S1, Normal S2, without murmur Abdomen: soft, non-tender, non-distended, positive bowel sound Extremities: excoriation Neurological: no change, disorganized Internal Medicine Assmt/Plan - Assessment Assessment: - Assessment Assessment: HTN ASTHMA COPD ANEMIA SCHIZOPHRENIA ANXIETY DEPRESSION - Plan Plan: FALL PRECAUTIONS SUPPLEMENTAL O2 NEEDED CONT. SNF MEDS CONTINUE CURRENT ORDERS - Plan Plan: cpm meds renewed aleksey rn Nutritional Asmnt/Malnutr-PDOC - Dietary Evaluation Malnutrition Findings (Please click <Entered> for more info): Nutritional Asmnt/Malnutrition Start: 11/07/18 13: 33 Text: Status: Complete Freq: Protocol: Document 11/07/18 13:33 [email or web address] (Rec: 11/07/18 13:51 [email or web address]) Nutritional Asmnt/Malnutrition Patient General Information Nutritional Screening Moderate Risk Diagnosis increased agitation Pertinent Medical Hx/Surgical Hx HTN, COPD, GERD, anemia Subjective Information Pt is AOx1 per nurse note. Pt intake is 75-100% of all meals per EMR. Oswaldo score is 11. Nurse note only noted potential skin problem. Current Diet Order/ Nutrition Support No added salt Patient / S.O Can't verbalize diet edu Pertinent Medications Seroquel, ambien Pertinent Labs Glucose 110, Cr 0.5, Albumin 3 .6 Nutritional Hx/Data Height 1.68 m Height (Calculated Centimeters) 167.6 Current Weight (lbs) 72.575 kg Weight (Calculated Kilograms) 72.6 Weight (Calculated Grams) 44520.8 [place] Body Weight 142 Body Mass Index (BMI) 25.8 Weight Status Overweight GI Symptoms GI Symptoms None Last BM 11/06 Difficult in: None Food Allergies No Skin Integrity/Comment: Oswaldo 11 Current %PO Good (75-100%) Estimated Nutritional Goals BEE in Kcals: Using Current wt Calories/Kcals/Kg 23-27 Kcals Calculated 4368-5096 Protein: Using Current wt Protein g/k.8-1 Protein Calculated 58-72 Fluid: ml 8576-9671 (1ml/kcal) Nutritional Problem No current Nutrition Prob Problem N/A Intervention/Recommendation Comments 1. Continue with no added salt diet as ordered 2. Monitor PO intake, wt, labs and skin integrity 3. F/U as moderate risk in 3-5 days, 11/10-11/12 Expected Outcomes/Goals Expected Outcomes/Goals Goal: PO intake to meet at least 75% of nutritional needs .
--- NOTE | 2018-11-22 20:18 | Progress Notes ---
DATE: 11/22/2018 SUBJECTIVE: Staff was spoken to. The patient is interviewed. Mood is noted to be less irritable. Affect is appropriate. Insight and judgment at this time are noted to be improving. Impulse control seems to be fair. No side effects to the medications are noted. The patient has paranoid delusions, but denies any command hallucinations. ASSESSMENT: The patient is still psychotic. The patient has been given a dose of the Haldol Decanoate yesterday and was able to tolerate the medication. PLAN: To continue the patient with the current regimen and work with the hospice case manager with regards to the discharge of the patient. JOB# [id number]
[2018-11-23] MEDS: Haldol Oral Sol.(concentrate) 10 mg/5 mL Udc PO SCH (09:50)
--- NOTE | 2018-11-23 12:33 | Progress Notes ---
DATE: 11/23/2018 SUBJECTIVE: Staff was spoken to. The patient is interviewed. Mood is noted to be irritable. Affect is constricted. The patient has been anxious this morning. The patient has to be given a dose of Ativan IM. Coping skills at this time are noted to be fair. The patient is not presenting with any threats to harm self or others. ASSESSMENT: The patient is still psychotic. PLAN: To continue the patient with the supportive therapy, encouraged the patient to verbalize the concerns rather than to act out. JOB# [id number]
--- NOTE | 2018-11-23 13:06 | Internal Medicine Prog Note ---
Internal Medicine Subjective - Subjective Patient seen and examined:: with staff, chart reviewed Patient is:: awake, verbal, interactive Per staff patient has:: no adverse event, no episodes of fall, tolerating meds Internal Medicine Objective - Results Result Diagrams: 11/02/18 22:40 11/02/18 22:40 Recent Labs: Laboratory Last Values WBC 7.5 Th/cmm (4.8-10.8) 11/02/18 22:40 RBC 4.42 Mil/cmm (3.80-5.20) 11/02/18 22:40 Hgb 11.8 gm/dL (12-16) L 11/02/18 22:40 Hct 36.9 % (41.0-60) L 11/02/18 22:40 MCV 83.4 fl (81-100) 11/02/18 22:40 MCH 26.8 pg (27.0-31.0) L 11/02/18 22:40 MCHC Differential 32.1 pg (28.0-36.0) 11/02/18 22:40 RDW 15.3 % (11.5-20.0) 11/02/18 22:40 Plt Count 369 Th/cmm (150-400) 11/02/18 22:40 MPV 7.7 fl 11/02/18 22:40 Neutrophils % 47.4 % (40.0-80.0) 11/02/18 22:40 Lymphocytes % 36.3 % (20.0-50.0) 11/02/18 22:40 Monocytes % 11.2 % (2.0-10.0) H 11/02/18 22:40 Eosinophils % 4.7 % (0.0-5.0) 11/02/18 22:40 Basophils % 0.4 % (0.0-2.0) 11/02/18 22:40 Sodium 137 mEq/L (136-145) 11/02/18 22:40 Potassium 4.0 mEq/L (3.5-5.1) 11/02/18 22:40 Chloride 103 mEq/L (98-107) 11/02/18 22:40 Carbon Dioxide 26.8 mEq/L (21.0-31.0) 11/02/18 22:40 Anion Gap 11.2 (7.0-16.0) 11/02/18 22:40 BUN 20 mg/dL (7-25) 11/02/18 22:40 Creatinine 0.5 mg/dL (0.6-1.2) L 11/02/18 22:40 Est GFR ( Amer) > 60.0 ml/min (>90) 11/02/18 22:40 Est GFR (Non-Af Amer) > 60.0 ml/min 11/02/18 22:40 BUN/Creatinine Ratio 40.0 11/02/18 22:40 Glucose 110 mg/dL (70-105) H 11/02/18 22:40 Calcium 9.6 mg/dL (8.6-10.3) 11/02/18 22:40 Total Bilirubin 0.2 mg/dL (0.3-1.0) L 11/02/18 22:40 AST 13 U/L (13-39) 11/02/18 22:40 ALT 7 U/L (7-52) 11/02/18 22:40 Alkaline Phosphatase 55 U/L (34-104) 11/02/18 22:40 Total Protein 7.4 gm/dL (6.0-8.3) 11/02/18 22:40 Albumin 3.6 gm/dL (3.7-5.3) L 11/02/18 22:40 Globulin 3.8 gm/dL 11/02/18 22:40 Albumin/Globulin Ratio 1.0 (1.0-1.8) 11/02/18 22:40 Triglycerides 56 mg/dL (<150) 11/02/18 22:40 Cholesterol 153 mg/dL (<200) 11/02/18 22:40 LDL Cholesterol Direct 82 mg/dL (75-193) 11/02/18 22:40 HDL Cholesterol 59 mg/dL (23-92) 11/02/18 22:40 - Physical Exam Vitals and I&O: Vital Signs Temp 0 F 11/23/18 12:16 Pulse 131 11/22/18 14:00 Resp 20 11/22/18 14:00 BP 147/101 11/22/18 14:00 Pulse Ox 96 11/22/18 14:00 Intake & Output 11/22/18 11/23/18 11/23/18 18:59 06:59 18:59 Intake Total 1200 Balance 1200 Intake: Oral 1200 Other: # Voids 3 # Bowel Movements 0 Active Medications: Current Medications Acetaminophen (Tylenol Extra Strength) 500 mg PO Q8HR PRN PRN Reason: PAIN 1-3 Stop: 01/02/19 02:02 Acetaminophen/Codeine Phosphate (Tylenol W/Codeine #3) 1 tab PO Q8HR PRN PRN Reason: PAIN 4-10 Stop: 01/02/19 02:02 Diphenhydramine HCl (Benadryl 50 Mg/Ml) 25 mg IM Q6HR PRN PRN Reason: Agitation Stop: 01/12/19 14:55 Last Admin: 11/22/18 17:36 Dose: 25 mg Haloperidol Decanoate (Haldol Dec) 50 mg IM QMONTH [facility]; Protocol Stop: 01/20/19 16:59 Last Admin: 11/21/18 18:17 Dose: 50 mg Haloperidol Lactate (Haldol Concentrate 10mg/5ml Susp) 5 mg PO BID [facility]; Protocol Stop: 01/15/19 08:59 Last Admin: 11/23/18 09:50 Dose: 5 mg Haloperidol Lactate (Haldol) 5 mg IM BID PRN PRN Reason: Agitation if refused po Stop: 01/18/19 11:45 Last Admin: 11/22/18 17:37 Dose: 5 mg Lorazepam (Ativan) 0.5 mg PO Q4HR PRN; Protocol PRN Reason: Anxiety Stop: 12/02/18 23:44 Last Admin: 11/17/18 20:43 Dose: 0.5 mg Methocarbamol (Robaxin) 500 mg PO Q8HR PRN PRN Reason: MUSCLE SPASM Stop: 01/02/19 02:02 Quetiapine Fumarate (Seroquel) 400 mg PO BID [facility]; Protocol Stop: 01/16/19 16:59 Last Admin: 11/23/18 09:51 Dose: 400 mg Zolpidem Tartrate (Ambien) 5 mg PO HS PRN PRN Reason: Insomnia Stop: 01/01/19 23:44 Last Admin: 11/19/18 20:39 Dose: 5 mg General: weak, demented HEENT: NC/AT, PERRLA Neck: Supple Lungs: CTAB Cardiovascular: RRR, Normal S1, Normal S2, without murmur Abdomen: soft, non-tender, non-distended, positive bowel sound Extremities: excoriation Neurological: no change, disorganized Internal Medicine Assmt/Plan - Assessment Assessment: - Assessment Assessment: HTN ASTHMA COPD ANEMIA SCHIZOPHRENIA ANXIETY DEPRESSION - Plan Plan: FALL PRECAUTIONS SUPPLEMENTAL O2 NEEDED CONT. SNF MEDS CONTINUE CURRENT ORDERS - Plan Plan: cpm meds renewed aleksey rn Nutritional Asmnt/Malnutr-PDOC - Dietary Evaluation Malnutrition Findings (Please click <Entered> for more info): Nutritional Asmnt/Malnutrition Start: 11/07/18 13: 33 Text: Status: Complete Freq: Protocol: Document 11/07/18 13:33 [email or web address] (Rec: 11/07/18 13:51 [email or web address]) Nutritional Asmnt/Malnutrition Patient General Information Nutritional Screening Moderate Risk Diagnosis increased agitation Pertinent Medical Hx/Surgical Hx HTN, COPD, GERD, anemia Subjective Information Pt is AOx1 per nurse note. Pt intake is 75-100% of all meals per EMR. Oswaldo score is 11. Nurse note only noted potential skin problem. Current Diet Order/ Nutrition Support No added salt Patient / S.O Can't verbalize diet edu Pertinent Medications Seroquel, ambien Pertinent Labs Glucose 110, Cr 0.5, Albumin 3 .6 Nutritional Hx/Data Height 1.68 m Height (Calculated Centimeters) 167.6 Current Weight (lbs) 72.575 kg Weight (Calculated Kilograms) 72.6 Weight (Calculated Grams) 40708.8 [place] Body Weight 142 Body Mass Index (BMI) 25.8 Weight Status Overweight GI Symptoms GI Symptoms None Last BM 11/06 Difficult in: None Food Allergies No Skin Integrity/Comment: Oswaldo 11 Current %PO Good (75-100%) Estimated Nutritional Goals BEE in Kcals: Using Current wt Calories/Kcals/Kg 23-27 Kcals Calculated 8077-2285 Protein: Using Current wt Protein g/k.8-1 Protein Calculated 58-72 Fluid: ml 4004-5862 (1ml/kcal) Nutritional Problem No current Nutrition Prob Problem N/A Intervention/Recommendation Comments 1. Continue with no added salt diet as ordered 2. Monitor PO intake, wt, labs and skin integrity 3. F/U as moderate risk in 3-5 days, 11/10-11/12 Expected Outcomes/Goals Expected Outcomes/Goals Goal: PO intake to meet at least 75% of nutritional needs .
== END 2018-11-23 15:50 | DRG 885 ==
LOC: ER 22:24 → GERO 23:30
DX: F20.0 Paranoid schizophrenia (principal); I10 Essential (primary) hypertension; J44.9 Chronic obstructive pulmonary disease, unspecified; D64.9 Anemia, unspecified; F41.9 Anxiety disorder, unspecified; K21.9 Gastro-esophageal reflux disease without esophagitis; F29 Unspecified psychosis not due to a substance or known physiological condition; H40.9 Unspecified glaucoma; M19.90 Unspecified osteoarthritis, unspecified site; F32.9 Major depressive disorder, single episode, unspecified
CPT/HCPCS: 36415-UA; 80053-TC; 80061-TC; 83036-90; 85025-TC; A4216; J1200; J1630; J1631; J2060; Z7610